=== PATIENT | male | born 1965 | race Caucasian/White ===

== ENCOUNTER 2016-03-08 13:13 | Emergency (ER) | payer BC ==
--- NOTE | 2016-03-08 13:35 | ER Document Report ---
ED Medical Screen (RME) - General Stated Complaint: CHEST PAIN Notes: 50 yo male c/o substernal, epigastric pain x 3 hours. pt took 650mg ASA at home , went to [facility] and was sent to ED. presently pt 04/16. + DM, nonsmoker. pain is nonradiating, nonreproducable. TRAVEL OUTSIDE OF THE [place] IN LAST 30 DAYS: No - Related Data Allergies/Adverse Reactions: egg [Egg] Allergy (Verified 10/07/14 16:19) Fruit Extracts [From Fruit & Vegetable Daily] Allergy (Verified 10/07/14 16:19) Lutein Extract [From Fruit & Vegetable Daily] Allergy (Verified 10/07/14 16:19) lycopene [From Fruit & Vegetable Daily] Allergy (Verified 10/07/14 16:19) Past Medical History - Past Medical History Cardiac Medical History: Reports: Hx Hypercholesterolemia Pulmonary Medical History: Reports: Hx Asthma GI Medical History: Reports: Hx Gastroesophageal Reflux Disease - Immunizations Hx Diphtheria, Pertussis, Tetanus Vaccination: Yes
[2016-03-08 14:05] LABS: ABSOLUTE BASOPHILS # (AUTO) 0.1 10^3/uL (0.0-0.2); ABSOLUTE EOSINOPHILS # (AUTO) 0.5 10^3/uL (0.0-0.6); ABSOLUTE LYMPHOCYTES (AUTO) 1.1 10^3/uL (0.5-4.7); ABSOLUTE MONOCYTES (AUTO) 0.8 10^3/uL (0.1-1.4); BASOPHILS % (AUTO) 0.6 % (0-2); EOSINOPHILS % (AUTO) 3.4 % (0-6); HEMATOCRIT 45.5 % (37.9-51.0); HEMOGLOBIN 14.9 g/dL (13.5-17.0); HGB HCT DIFFERENCE -0.8; LYMPHOCYTES % (AUTO) 8.4 % (13-45); MEAN CORPUSCULAR HEMOGLOBIN 29.3 pg (27.0-33.4); MEAN CORPUSCULAR HGB CONC 32.8 g/dL (32.0-36.0); MEAN CORPUSCULAR VOLUME 89 fl (80-97); MONOCYTES % (AUTO) 5.7 % (3-13); RED BLOOD COUNT 5.09 10^6/uL (4.35-5.55); RED CELL DISTRIBUTION WIDTH 13.1 % (11.5-14.0); SEGMENTED NEUTROPHILS % (AUTO) 81.9 % (42-78); WHITE BLOOD COUNT 13.4 10^3/uL (4.0-10.5)
[2016-03-08 14:08] LABS: APPEARANCE,URINE CLEAR; BILIRUBIN,URINE NEGATIVE (NEGATIVE); GLUCOSE, URINE 150 mg/dL (NEGATIVE); KETONES,URINE NEGATIVE (NEGATIVE); LEUKOCYTE ESTERASE,URINE NEGATIVE (NEGATIVE); NITRITE,URINE NEGATIVE (NEGATIVE); PROTEIN,URINE NEGATIVE (NEGATIVE); URINE SPECIFIC GRAVITY 1.017; UROBILINOGEN,URINE NEGATIVE mg/dL (<2.0)
[2016-03-08 14:17] LABS: ALANINE AMINOTRANSFERASE 35 U/L (21-72); ALBUMIN 4.6 g/dL (3.5-5.0); ALKALINE PHOSPHATASE 101 U/L (38-126); ANION GAP 13 (5-19); ASPARTATE AMINO TRANSFERASE 19 U/L (17-59); BLOOD UREA NITROGEN 15 mg/dL (7-20); CALCIUM 9.6 mg/dL (8.4-10.2); CARBON DIOXIDE 29 mmol/L (22-30); CHLORIDE 100 mmol/L (98-107); CREATINE KINASE 53 U/L (55-170); CREATININE RESULT 0.89 mg/dL (0.52-1.25); GLUCOSE 152 mg/dL (75-110); LIPASE 34.9 U/L (23-300); POTASSIUM 4.2 mmol/L (3.6-5.0); SODIUM 141.9 mmol/L (137-145); TOTAL PROTEIN 7.6 g/dL (6.3-8.2)
[2016-03-08 14:31] LABS: TROPONIN I < 0.012 ng/mL
--- NOTE | 2016-03-08 14:53 | EKG REPORT ---
SEVERITY:- ABNORMAL ECG - SINUS RHYTHM LAD, CONSIDER LEFT ANTERIOR FASCICULAR BLOCK : Confirmed by: Viji Lyn MD 08-Mar-2016 14:53:20
--- NOTE | 2016-03-08 15:55 | ER Document Report ---
ED Cardiac - General Chief Complaint: Chest Pain Stated Complaint: CHEST PAIN Information source: Patient Notes: Patient is a 50-year-old male who presents today with the onset around 11 AM of some substernal and epigastric chest "discomfort". He states nausea with vomiting times one. He denies any calf pain, leg swelling, shortness of breath , recent trips or travel. He denies any radiation of the pain, aggravating relieving factors. Patient states she does have a history of reflux and takes Prilosec for this. Patient is aware that he had an EKG in 2004 that was "irregular". TRAVEL OUTSIDE OF THE [place] IN LAST 30 DAYS: No - HPI Patient complains to provider of: Other - See above Was the onset of pain: Gradual Is the pain a: New problem Chest pain location: Other - See above Quality of pain: Other - See above Chest pain radiation location: None Severity now: None Severity at worst: Moderate Pain level currently: Denies Cardiac risk factors: Diabetes Positive cardiac history: No Associated symptoms: Other - See above Exacerbated by: Denies Relieved by: Nothing Similar symptoms previously: Yes Recently seen / treated by doctor: No - Related Data Allergies/Adverse Reactions: egg [Egg] Allergy (Verified 03/08/16 13:34) Fruit Extracts [From Fruit & Vegetable Daily] Allergy (Verified 03/08/16 13:34) Lutein Extract [From Fruit & Vegetable Daily] Allergy (Verified 03/08/16 13:34) lycopene [From Fruit & Vegetable Daily] Allergy (Verified 03/08/16 13:34) Past Medical History - General Information source: Patient - Social History Smoking Status: Never Smoker Chew tobacco use (# tins/day): No Frequency of alcohol use: None Drug Abuse: None Family History: Reviewed & Not Pertinent Patient has suicidal ideation: No Patient has homicidal ideation: No - Past Medical History Cardiac Medical History: Reports: Hx Hypercholesterolemia Pulmonary Medical History: Reports: Hx Asthma Renal/ Medical History: Denies: Hx Peritoneal Dialysis GI Medical History: Reports: Hx Gastroesophageal Reflux Disease - Immunizations Hx Diphtheria, Pertussis, Tetanus Vaccination: Yes Review of Systems - Review of Systems Constitutional: denies: Fever EENT: denies: Eye discharge, Nose discharge Respiratory: denies: Short of breath Gastrointestinal: Abdominal pain, Vomiting. denies: Abdomen distended, Diarrhea Genitourinary: denies: Dysuria Musculoskeletal: denies: Leg swelling Skin: Other - no hives. denies: Rash Neurological/Psychological: Other - no slurred speech -: Yes All other systems reviewed and negative Physical Exam - Vital signs Vitals: Temp Pulse Resp BP Pulse Ox 97.3 F 81 18 124/90 H 96 03/08/16 13:33 03/08/16 13:33 03/08/16 13:33 03/08/16 13:33 03/08/16 13:33 Notes: Reviewed vital signs and nursing note as charted by RN. CONSTITUTIONAL: Alert and oriented and responds appropriately to questions. Well -appearing; well-nourished HEAD: Normocephalic; atraumatic EYES: Sclerae non-icteric ENT: Normal nose; no rhinorrhea; moist mucous membranes; pharynx without lesions noted NECK: Supple without meningismus; non-tender CARD: Regular rate and rhythm; no murmurs, no clicks, no rubs, no gallops; symmetric distal pulses RESP: Normal chest excursion without splinting or tachypnea; breath sounds clear and equal bilaterally; no wheezes, no rhonchi, no rales ABD/GI: Normal bowel sounds; non-distended; soft, mild tenderness to palpation of the epigastric region. No right upper quadrant tenderness to deep palpation. Negative Apodaca sign; No rebound, no guarding; no palpable organomegaly or masses BACK: The back appears normal and is non-tender to palpation, there is no CVA tenderness EXT: Normal ROM in all joints; non-tender to palpation; no cyanosis, no effusions, no edema SKIN: Normal color for age and race; warm; dry; good turgor; capillary refill < 2 seconds; no acute lesions noted NEURO: Moves all extremities equally; Motor and sensory function intact PSYCH: The patient's mood and manner are appropriate. Grooming and personal hygiene are appropriate. Course - Re-evaluation Re-evalutation: 03/08/16 15:53 EKG shows a heart of 61, normal sinus rhythm, minimal left anterior fascicular block, right bundle-branch block with inverted T waves in leads V1 through V4. Old EKG looks extremely similar except for an upright T-wave in V4. Given the history and physical examination I been extremely low pretest probability for PE or aortic dissection. 1) Observation status Date/Time initiated: 354pm 03/08/16 ED Observation Status - The reason for the observation is to continue the patient's evaluation and treatment to determine if the patient's clinical course requires a full hospital admission or they can be safely discharged home. My plan is: To place the patient on a monitor and have a repeat cardiac enzyme obtain an 3 hours. 2) Progress Note 1: Patient is currently chest pain-free at this time. Aspirin has been given. First troponin is negative. Chest x-ray shows normal heart, normal mediastinum, no fractures, normal lung fitzgerald, no pneumothorax. 3) Progress Note 2: 03/08/16 17:55 patient is still chest pain-free at this time. Second set of cardiac enzymes is unremarkable. Patient still denies any chest pain. No change in abdominal exam. 4) ED Observation Discharge Summary: a. Clinical course in ED: Patient had 2 sets of cardiac enzymes by 3 hours. Repeat EKG as recorded. b. Final diagnosis/medical decision making: Given the history and physical examination, with 2 sets of cardiac enzymes by 3 hours, with a heart score of 3 or less, I do not believe that the patient requires admission at this time. I have called and spoken to Dr. Hansen who states he can follow up with the patient with Cardiology and GI follow up as needed. He states he can see the patient tomorrow at 2 PM. c. Disposition: Discharge 5) ED Observation Status D/C Time: 03/08/14 - 18:10PM - Vital Signs Vital signs: Temp Pulse Resp BP Pulse Ox 97.3 F 81 18 124/90 H 96 03/08/16 13:33 03/08/16 13:33 03/08/16 13:33 03/08/16 13:33 03/08/16 13:33 - Laboratory Result Diagrams: 03/08/16 13:40 03/08/16 13:40 Laboratory results interpreted by me: 03/08/16 03/08/16 03/08/16 13:40 13:40 13:45 WBC 13.4 H Seg Neutrophils % 81.9 H Lymphocytes % 8.4 L Absolute Neutrophils 11.0 H Glucose 152 H Creatine Kinase 53 L Urine Glucose (UA) 150 H Discharge - Discharge Clinical Impression: Epigastric pain, Right bundle branch block (RBBB) Condition: Good Disposition: HOME, SELF-CARE Additional Instructions: Come back immediately with any return of pain, change in location or quality of pain, fevers, vomiting, shortness of breath, or any other acute problems. Please make sure that you follow-up tomorrow at [address] Hansen as we have scheduled for you.
[2016-03-08 18:26] VITALS: BP 130/88
--- NOTE | 2016-03-10 12:42 | EKG REPORT ---
SEVERITY:- ABNORMAL ECG - SINUS RHYTHM INCOMPLETE RIGHT BUNDLE BRANCH BLOCK PROBABLE INFERIOR INFARCT, OLD CONSIDER ANTERIOR INFARCT : Confirmed by: Viji Lyn MD 10-Mar-2016 12:42:06
== END 2016-03-08 18:26 | disposition home or self-care (01) ==
LOC: ER 13:13
DX: I45.2 Bifascicular block (principal); K21.9 Gastro-esophageal reflux disease without esophagitis; R10.13 Epigastric pain; R11.2 Nausea with vomiting, unspecified; J45.909 Unspecified asthma, uncomplicated; Z79.899 Other long term (current) drug therapy; Z91.012 Allergy to eggs; Z91.018 Allergy to other foods
CPT/HCPCS: 36415; 71020; 80053; 81001; 82550; 82553; 83690; 84484; 85025; 93005; 93010; 99285

== ENCOUNTER 2016-08-04 10:49 | Emergency (ER) | payer BC, OTHER ==
[2016-08-04] MEDS ORDERED: ONDANSETRON 4 MG TAB.RAPDIS PO ONE (12:21)
--- NOTE | 2016-08-04 12:21 | ER Document Report ---
ED General - General Mode of Arrival: Ambulatory Information source: Patient TRAVEL OUTSIDE OF THE [place] IN LAST 30 DAYS: No - General Chief Complaint: Nausea/Vomiting Stated Complaint: NAUSEA Time Seen by Provider: 08/04/16 11:32 Notes: Patient is a 51-year-old male presenting to the emergency department for nausea , vomiting, sore throat and cough. Patient's symptoms were onset Sunday. Patient saw his ENT doctor yesterday states his throat was fine but it appeared that he cannot catch his breath while he was talking. Patient has a dry cough which he believes is why he has a sore throat as well. Patient states he is possibly dehydrated. Patient states he has been vomiting some with his cough. Patient denies any diarrhea. Patient also states that urine has been orange in color. Patient has a history of asthma and takes Ventolin only when he needs it. Patient has a history of strep throat. (STEVEN LATHAM) - Related Data Allergies/Adverse Reactions: egg [Egg] Allergy (Verified 08/04/16 10:54) Fruit Extracts [From Fruit & Vegetable Daily] Allergy (Verified 08/04/16 10:54) Lutein Extract [From Fruit & Vegetable Daily] Allergy (Verified 08/04/16 10:54) lycopene [From Fruit & Vegetable Daily] Allergy (Verified 08/04/16 10:54) Past Medical History - General Information source: Patient - Social History Smoking Status: Never Smoker Chew tobacco use (# tins/day): No Frequency of alcohol use: None Drug Abuse: None Family History: None Patient has suicidal ideation: No Patient has homicidal ideation: No - Past Medical History Cardiac Medical History: Reports: Hx Hypercholesterolemia Pulmonary Medical History: Reports: Hx Asthma Endocrine Medical History: Reports: Hx Diabetes Mellitus Type 2Comment Only: Hx Diabetes Mellitus Type 1 - ? GI Medical History: Reports: Hx Gastroesophageal Reflux Disease Surgical Hx: Negative - Immunizations Hx Diphtheria, Pertussis, Tetanus Vaccination: Yes Review of Systems - Review of Systems Constitutional: No symptoms reported EENT: See HPI Cardiovascular: See HPI Respiratory: No symptoms reported Gastrointestinal: See HPI Genitourinary: No symptoms reported Male Genitourinary: No symptoms reported Musculoskeletal: No symptoms reported Skin: No symptoms reported Hematologic/Lymphatic: No symptoms reported Neurological/Psychological: See HPI, Headaches -: Yes All other systems reviewed and negative Physical Exam - Vital signs Vitals: Temp Pulse Resp BP Pulse Ox 98.4 F 90 16 151/94 H 95 08/04/16 10:53 08/04/16 10:53 08/04/16 10:53 08/04/16 10:53 08/04/16 10:53 - Notes Notes: GENERAL: Alert, interacts well. No acute distress. HEAD: Normocephalic, atraumatic. EYES: Pupils equal, round, and reactive to light. Extraocular movements intact. ENT: Oral mucosa moist, tongue midline. NECK: Full range of motion. Supple. Trachea midline. LUNGS: Clear to auscultation bilaterally, no wheezes, rales, or rhonchi. No respiratory distress. HEART: Regular rate and rhythm. No murmurs, gallops, or rubs. ABDOMEN: Soft, non-tender. Non-distended. Bowel sounds present in all 4 quadrants. EXTREMITIES: Moves all 4 extremities spontaneously. No edema. NEUROLOGICAL: Alert and oriented x3. Normal speech. PSYCH: Normal affect, normal mood. SKIN: Warm, dry, normal turgor. No rashes or lesions noted. (STEVEN LATHAM) Course - Re-evaluation Re-evalutation: 08/04/16 13:20 Patient presents emergency department with a chief complaint a one-week history of cough and sore throat from coughing. Said that he saw his ENT doctor yesterday and they did not find anything apparent. Says he has posttussive emesis no fevers or chills he does have a history of asthma but has not been wheezing. He has not been hospitalized or intubated for his asthma. He is well -appearing nontoxic in no acute distress no tachycardia and pulse ox 95% on room air with no conversational dyspnea or retractions his lungs are clear no wheezes rales or rhonchi abdomen soft with no peripheral edema. Chest x-ray is negative for acute pathology suspected bronchitis went ahead and start him on prednisone he needs a refill of his inhaler and gave him Zofran for the posttussive emesis no acute concerns for intra-abdominal pathology discharge follow-up primary care physician in 3-4 days and discussed reasons for ED return sooner (CHERRI HERNANDEZ) - Vital Signs Vital signs: Temp Pulse Resp BP Pulse Ox 98.2 F 74 20 134/94 H 100 08/04/16 13:39 08/04/16 13:39 08/04/16 13:39 08/04/16 13:39 08/04/16 13:39 Discharge - Discharge Clinical Impression: acute bronchitis, postussive emesis Condition: Stable Disposition: HOME, SELF-CARE Additional Instructions: Bronchitis You have acute bronchitis. This disease is an infection or inflammation of the air passageways in your lungs. Symptoms usually include cough, low grade fever, shortness of breath, and wheezing. The cough usually persists for a couple of weeks. Most cases of bronchitis get better without antibiotics. We prescribe antibiotics when we believe bacteria are damaging your airways, or if there's high risk the bronchitis will worsen into pneumonia. Increase your fluid intake. A cool mist humidifier may make your lungs more comfortable. An expectorant (cough medicine that loosens phlegm) can help. If you smoke, STOP!!! Recovery from bronchitis can be somewhat slow, but you should see improvement within a day or two. Repeated episodes of bronchitis may result in lung damage -- for example, chronic bronchitis, recurrent pneumonias, or emphysema. Call the doctor if you develop increasing fever, shortness of breath, chest pain, bloody sputum, or otherwise worsen. If you have not improved at all after several days, contact the physician. Follow-up with your primary care physician in 3-4 days return for increasing worsening or new symptoms Prescriptions: Albuterol Sulfate [Proair HFA Inhalation Aerosol 8.5 gm MDI] 2 puff IH Q4H PRN # 1 mdi PRN Reason: Ondansetron [Zofran Odt 4 mg Tablet] 1 - 2 tab PO Q4H PRN #15 tab.rapdis PRN Reason: For Nausea/Vomiting Prednisone [Deltasone 20 mg Tablet] 3 tab PO DAILY 5 Days Referrals: ANA LUISA MONTIEL MD [Primary Care Provider] - Follow up as needed Scribe Attestation: 08/04/16 13:20 I personally performed the services described in the documentation reviewed the documentation recorded by my scribe in my presence and it accurately and completely records my words and actions (CHERRI HERNANDEZ) Scribe Documentation - Scribe Written by Scribe:: My signature 08/04/2016 180 acting as scribe for :: MARY
--- NOTE | 2016-08-04 12:41 | RADIOLOGY REPORT (SQ) ---
EXAM DESCRIPTION: CHEST PA/LAT COMPLETED DATE/TIME: 08/04/2016 12:31 pm REASON FOR STUDY: cough COMPARISON: February 2016 EXAM PARAMETERS: NUMBER OF VIEWS: two views TECHNIQUE: Digital Frontal and Lateral radiographic views of the chest acquired. RADIATION DOSE: NA LIMITATIONS: none FINDINGS: LUNGS AND PLEURA: No opacities, masses or pneumothorax. No pleural effusion. MEDIASTINUM AND HILAR STRUCTURES: No masses or contour abnormalities. HEART AND VASCULAR STRUCTURES: Heart normal size. No evidence for failure. BONES: No acute findings. HARDWARE: None in the chest. OTHER: No other significant finding. IMPRESSION: NO SIGNIFICANT RADIOGRAPHIC FINDING IN THE CHEST. TECHNICAL DOCUMENTATION: JOB ID: [id number] [employer]- All Rights Reserved
[2016-08-04 13:40] VITALS: BP 134/94
== END 2016-08-04 13:40 | disposition home or self-care (01) ==
LOC: ER 10:49
DX: J20.9 Acute bronchitis, unspecified (principal); R11.2 Nausea with vomiting, unspecified; J02.9 Acute pharyngitis, unspecified; J45.909 Unspecified asthma, uncomplicated; E78.00 Pure hypercholesterolemia, unspecified; E11.9 Type 2 diabetes mellitus without complications; K21.9 Gastro-esophageal reflux disease without esophagitis
CPT/HCPCS: 99283; 71020; S0119

== ENCOUNTER 2016-10-08 17:36 | Emergency (ER) | payer BC | END 2016-10-08 18:40 | disposition home or self-care (01) | LOC: ER 17:36 | DX: H60.91 Unspecified otitis externa, right ear (principal) | CPT/HCPCS: 99282 ==

== ENCOUNTER 2017-04-30 16:13 | Emergency (ER) | payer BC ==
[2017-04-30] MEDS ORDERED: ASPIRIN 325 MG TABLET PO ONE (17:35)
--- NOTE | 2017-04-30 17:37 | ER Document Report ---
ED Medical Screen (RME) - General Chief Complaint: Chest Pain Stated Complaint: CHEST PAIN Time Seen by Provider: 04/30/17 17:35 Mode of Arrival: Ambulatory Information source: Patient Notes: Patient states she has been diagnosed with angina in the past but does not take nitroglycerin or an aspirin a day. He states he does not have any history of heart attacks or stents. He states the last 2 weeks he has had chest pain every day that feels like a "bruise". He states at times throughout the day will get worse. Occasionally is short of breath. No nausea vomiting or diarrhea. He has had a mild cough that is been dry. He was seen in urgent care today in which an abnormal EKG was appreciated. He was then referred here to the emergency department. He states he currently has chest pain but is no different than the same pain he has had consistently for the last 2 weeks. TRAVEL OUTSIDE OF THE [place] IN LAST 30 DAYS: No - Related Data Allergies/Adverse Reactions: egg [Egg] Allergy (Verified 04/30/17 16:15) Fruit Extracts [From Fruit & Vegetable Daily] Allergy (Verified 04/30/17 16:15) Lutein Extract [From Fruit & Vegetable Daily] Allergy (Verified 04/30/17 16:15) lycopene [From Fruit & Vegetable Daily] Allergy (Verified 04/30/17 16:15) Past Medical History - Social History Chew tobacco use (# tins/day): No Frequency of alcohol use: None Drug Abuse: None - Past Medical History Cardiac Medical History: Reports: Hx Hypercholesterolemia Pulmonary Medical History: Reports: Hx Asthma Endocrine Medical History: Reports: Hx Diabetes Mellitus Type 2Comment Only: Hx Diabetes Mellitus Type 1 - ? Renal/ Medical History: Denies: Hx Peritoneal Dialysis GI Medical History: Reports: Hx Gastroesophageal Reflux Disease - Immunizations Hx Diphtheria, Pertussis, Tetanus Vaccination: Yes Physical Exam - Vital signs Vitals: Temp Pulse Resp BP Pulse Ox 98.6 F 89 16 151/79 H 96 04/30/17 16:19 04/30/17 16:19 04/30/17 16:19 04/30/17 16:19 04/30/17 16:19 Course - Vital Signs Vital signs: Temp Pulse Resp BP Pulse Ox 98.6 F 89 16 151/79 H 96 04/30/17 16:19 04/30/17 16:19 04/30/17 16:19 04/30/17 16:19 04/30/17 16:19 Doctor's Discharge - Discharge Referrals: ANA LUISA MONTIEL MD [Primary Care Provider] - Follow up as needed
[2017-04-30 17:58] LABS: ABSOLUTE BASOPHILS # (AUTO) 0.1 10^3/uL (0.0-0.2); ABSOLUTE EOSINOPHILS # (AUTO) 0.5 10^3/uL (0.0-0.6); ABSOLUTE LYMPHOCYTES (AUTO) 2.4 10^3/uL (0.5-4.7); ABSOLUTE MONOCYTES (AUTO) 0.6 10^3/uL (0.1-1.4); ABSOLUTE NEUT (AUTO) 5.2 10^3/uL (1.7-8.2); BASOPHILS % (AUTO) 1.1 % (0-2); EOSINOPHILS % (AUTO) 5.8 % (0-6); HEMATOCRIT 47.6 % (37.9-51.0); HEMOGLOBIN 16.3 g/dL (13.5-17.0); LYMPHOCYTES % (AUTO) 26.8 % (13-45); MEAN CORPUSCULAR HEMOGLOBIN 29.4 pg (27.0-33.4); MEAN CORPUSCULAR HGB CONC 34.2 g/dL (32.0-36.0); MEAN CORPUSCULAR VOLUME 86 fl (80-97); MONOCYTES % (AUTO) 7.3 % (3-13); PLATELET COUNT 287 10^3/uL (150-450); RED BLOOD COUNT 5.54 10^6/uL (4.35-5.55); RED CELL DISTRIBUTION WIDTH 13.5 % (11.5-14.0); TOTAL CELLS COUNTED % (AUTO) 100 %; WHITE BLOOD COUNT 8.8 10^3/uL (4.0-10.5)
[2017-04-30 18:14] LABS: ALANINE AMINOTRANSFERASE 40 U/L (21-72); ALBUMIN 4.6 g/dL (3.5-5.0); ALKALINE PHOSPHATASE 96 U/L (38-126); ANION GAP 12 (5-19); ASPARTATE AMINO TRANSFERASE 24 U/L (17-59); BILIRUBIN,DIRECT 0.2 mg/dL (0.0-0.4); BILIRUBIN,TOTAL 0.9 mg/dL (0.2-1.3); BLOOD UREA NITROGEN 12 mg/dL (7-20); CALCIUM 9.8 mg/dL (8.4-10.2); CARBON DIOXIDE 27 mmol/L (22-30); CHLORIDE 101 mmol/L (98-107); GLUCOSE 149 mg/dL (75-110); POTASSIUM 4.1 mmol/L (3.6-5.0); SODIUM 140.2 mmol/L (137-145); TOTAL PROTEIN 7.3 g/dL (6.3-8.2)
--- NOTE | 2017-04-30 18:20 | RADIOLOGY REPORT (SQ) ---
EXAM DESCRIPTION: CHEST PA/LAT COMPLETED DATE/TIME: 04/30/2017 6:11 pm REASON FOR STUDY: cp COMPARISON: 10/04/2016 EXAM PARAMETERS: NUMBER OF VIEWS: two views TECHNIQUE: Digital Frontal and Lateral radiographic views of the chest acquired. RADIATION DOSE: NA LIMITATIONS: none FINDINGS: LUNGS AND PLEURA: No opacities, masses or pneumothorax. No pleural effusion. MEDIASTINUM AND HILAR STRUCTURES: No masses or contour abnormalities. HEART AND VASCULAR STRUCTURES: Heart normal size. No evidence for failure. BONES: No acute findings. HARDWARE: None in the chest. OTHER: No other significant finding. IMPRESSION: NO SIGNIFICANT RADIOGRAPHIC FINDING IN THE CHEST. TECHNICAL DOCUMENTATION: JOB ID: [id number] [employer]- All Rights Reserved Reading location - IP/workstation name: [email or web address]
--- NOTE | 2017-04-30 19:16 | ER Document Report ---
ED General - General Chief Complaint: Chest Pain Stated Complaint: CHEST PAIN Time Seen by Provider: 04/30/17 17:35 Mode of Arrival: Ambulatory Notes: Patient is a 51-year-old male without past medical history who presents with 3 weeks of right lower rib pain. He describes it as a dull, constant aching pain worsened by movement and coughing. He states this feels somewhat similar to when he injured his left-sided ribs. He is uncertain of what triggered his pain notes that it has been overall unchanged since onset 3 weeks ago. He has not tried anything to improve the pain. He denies any change in the pain with eating or drinking. He denies any shortness of breath, hemoptysis, or left- sided chest pain. No radiation of the pain. No associated diaphoresis or vomiting. He has not seen his primary care doctor regarding today's concerns. He was seen in urgent care and subsequently referred to the emergency department due to concerns of T-wave inversions in his anterior lateral leads. He has no known cardiac history. No history of DVT or pulmonary embolus. No history of abdominal surgeries. TRAVEL OUTSIDE OF THE [place] IN LAST 30 DAYS: No - Related Data Allergies/Adverse Reactions: egg [Egg] Allergy (Verified 04/30/17 16:15) Fruit Extracts [From Fruit & Vegetable Daily] Allergy (Verified 04/30/17 16:15) Lutein Extract [From Fruit & Vegetable Daily] Allergy (Verified 04/30/17 16:15) lycopene [From Fruit & Vegetable Daily] Allergy (Verified 04/30/17 16:15) Past Medical History - General Information source: Patient - Social History Smoking Status: Never Smoker Chew tobacco use (# tins/day): No Frequency of alcohol use: None Drug Abuse: None Lives with: Family Family History: Reviewed & Not Pertinent Patient has suicidal ideation: No Patient has homicidal ideation: No - Past Medical History Cardiac Medical History: Reports: Hx Hypercholesterolemia Pulmonary Medical History: Reports: Hx Asthma Endocrine Medical History: Reports: Hx Diabetes Mellitus Type 2Comment Only: Hx Diabetes Mellitus Type 1 - ? Renal/ Medical History: Denies: Hx Peritoneal Dialysis GI Medical History: Reports: Hx Gastroesophageal Reflux Disease - Immunizations Hx Diphtheria, Pertussis, Tetanus Vaccination: Yes Review of Systems - Review of Systems Notes: Constitutional: Negative for fever. HENT: Negative for sore throat. Eyes: Negative for visual changes. Cardiovascular: Negative for chest pain. Respiratory: Negative for shortness of breath. Gastrointestinal: Negative for abdominal pain, vomiting or diarrhea. Genitourinary: Negative for dysuria. Musculoskeletal: Positive for lower rib pain on the right Skin: Negative for rash. Neurological: Negative for headaches, weakness or numbness. 10 point ROS negative except as marked above and in HPI. Physical Exam - Vital signs Vitals: Temp Pulse Resp BP Pulse Ox 98.6 F 89 16 151/79 H 96 04/30/17 16:19 04/30/17 16:19 04/30/17 16:19 04/30/17 16:19 04/30/17 16:19 Interpretation: Hypertensive Notes: PHYSICAL EXAMINATION: GENERAL: Well-appearing, well-nourished and in no acute distress. HEAD: Atraumatic, normocephalic. EYES: Pupils equal round and reactive to light, extraocular movements intact, sclera anicteric, conjunctiva are normal. ENT: nares patent, oropharynx clear without exudates. Moist mucous membranes. NECK: Normal range of motion, supple without lymphadenopathy LUNGS: Breath sounds clear to auscultation bilaterally and equal. No wheezes rales or rhonchi. HEART: Regular rate and rhythm without murmurs Chest wall: Pain on palpation of the right lower intercostal spaces ABDOMEN: Soft, nontender, normoactive bowel sounds. No guarding, no rebound. No masses appreciated. EXTREMITIES: Normal range of motion, no pitting or edema. No cyanosis. NEUROLOGICAL: No focal neurological deficits. Moves all extremities spontaneously and on command. PSYCH: Normal mood, normal affect. SKIN: Warm, Dry, normal turgor, no rashes or lesions noted. Course - Re-evaluation Re-evalutation: 04/30/17 19:13 Presentation of chest pain in an otherwise well appearing patient. Low clinical suspicion for ACS given clinical history, exam, EKG without ST elevations or depressions, and negative initial troponin. HEART score less than or equal to 3. PE also seems unlikely given clinical history, absence of tachycardia or dyspnea. Wells score is 0. CXR without evidence of pneumothorax or pneumonia. No widened mediastinum. Aortic dissection also seems unlikely given history, symmetric pulses, CXR, and vitals. Patient has had 3 weeks of symptoms, they are localized to the right lower chest wall. He has no focal tenderness the right upper quadrant and denies any symptoms that would suggest a biliary pathology. LFTs and bilirubin are within normal limits. He has not had any vomiting. I do not clinically suspect any acute life threatening pathology at this time point based on exam, labs, vitals and history. His EKG does show T- wave inversions in the lateral leads although these are unchanged from February 2016. At this time will discharge with return precautions and follow-up recommendations. Verbal discharge instructions given a the bedside and opportunity for questions given. Medication warnings reviewed. Patient is in agreement with this plan and has verbalized understanding of return precautions and the need for primary care follow-up in the next 24-72 hours. - Vital Signs Vital signs: Temp Pulse Resp BP Pulse Ox 98.6 F 89 14 128/91 H 95 04/30/17 16:19 04/30/17 16:19 04/30/17 20:12 04/30/17 20:12 04/30/17 20:12 - Laboratory Result Diagrams: 04/30/17 17:43 04/30/17 17:43 Laboratory results interpreted by me: 04/30/17 17:43 Glucose 149 H - Diagnostic Test Radiology reviewed: Image reviewed, Reports reviewed Radiology results interpreted by me: 04/30/17 19:14 Chest x-ray: No acute infiltrate or pneumothorax - EKG Interpretation by Me Additional EKG results interpreted by me: 04/30/17 19:15 Sinus rhythm. Rate 80. No ST elevations or depressions. T-wave inversions in V1 through 4 unchanged from a prior EKG from February 2016. Discharge - Discharge Clinical Impression: Rib pain, Chest wall pain Condition: Good Disposition: HOME, SELF-CARE Additional Instructions: Your chest wall pain is due to inflammation of the muscles between your ribs. Your x-ray, labs, and EKG do not at this time suggest a life-threatening cause of your pain such as a heart attack, blood clot in your lungs, or lung infection. This pain can last for up to 6 weeks. It is very important that you continue to take purposeful deep breaths. For your pain: Continue to take ibuprofen 600 mg every 6 hours or Tylenol 1000 mg every 6 hours. Apply local lidocaine to the area per bottle instructions. There is a product sold over-the -counter called "Aspercreme with lidocaine" that you can use for this purpose. Please follow-up with her primary care doctor in the next 2-3 days. Return to the emergency department immediately if you develop worsening shortness of breath, increased pain, begin coughing blood, pass out, or have any other symptoms that are worrisome to you. Referrals: ANA LUISA MONTIEL MD [Primary Care Provider] - Follow up as needed
[2017-04-30] MEDS ORDERED: LIDOCAINE 5% (700 MG) TRANSDERMAL ADH..PATCH TP ONE (20:05)
[2017-04-30 20:16] VITALS: BP 128/91
--- NOTE | 2017-04-30 23:32 | EKG REPORT ---
SEVERITY:- ABNORMAL ECG - SINUS RHYTHM LAD, CONSIDER LEFT ANTERIOR FASCICULAR BLOCK NON SPECIFIC T INVERSION ANTERIOR CHEST LEADS : Confirmed by: Iván Mo 30-Apr-2017 23:31:15
== END 2017-04-30 20:16 | disposition home or self-care (01) ==
LOC: ER 16:13
DX: R07.81 Pleurodynia (principal); R07.89 Other chest pain; R94.31 Abnormal electrocardiogram [ECG] [EKG]; J45.909 Unspecified asthma, uncomplicated; E11.9 Type 2 diabetes mellitus without complications
CPT/HCPCS: 36415; 71046; 80053; 84484; 85025; 93005; 93010; 99284

== ENCOUNTER 2017-08-21 06:27 | Observation (INO) | payer BC ==
--- NOTE | 2017-08-21 06:34 | ER Document Report ---
ED General - General Stated Complaint: STROKE LIKE SYMPTOMS Time Seen by Provider: 08/21/17 06:32 Mode of Arrival: Wheelchair Information source: Patient Notes: 52-year-old male presents with sudden episode of right blurry vision sensation that he is drooling on the left left arm paresthesia is started at 6 AM. Patient denies previous similar episodes TRAVEL OUTSIDE OF THE [place] IN LAST 30 DAYS: No - HPI Onset: Just prior to arrival Onset/Duration: Sudden Quality of pain: No pain Severity: Mild Pain Level: Denies Associated symptoms: Nausea, Weakness Exacerbated by: Denies Relieved by: Denies Similar symptoms previously: No Recently seen / treated by doctor: No - Related Data Allergies/Adverse Reactions: egg [Egg] Allergy (Verified 04/30/17 16:15) Fruit Extracts [From Fruit & Vegetable Daily] Allergy (Verified 04/30/17 16:15) Lutein Extract [From Fruit & Vegetable Daily] Allergy (Verified 04/30/17 16:15) lycopene [From Fruit & Vegetable Daily] Allergy (Verified 04/30/17 16:15) Past Medical History - Social History Smoking Status: Never Smoker Cigarette use (# per day): No Chew tobacco use (# tins/day): No Smoking Education Provided: No Family History: Reviewed & Not Pertinent - Past Medical History Cardiac Medical History: Reports: Hx Hypercholesterolemia Pulmonary Medical History: Reports: Hx Asthma Endocrine Medical History: Reports: Hx Diabetes Mellitus Type 2Comment Only: Hx Diabetes Mellitus Type 1 - ? Renal/ Medical History: Denies: Hx Peritoneal Dialysis GI Medical History: Reports: Hx Gastroesophageal Reflux Disease - Immunizations Hx Diphtheria, Pertussis, Tetanus Vaccination: Yes Review of Systems - Review of Systems Notes: REVIEW OF SYSTEMS: CONSTITUTIONAL : Denies fever, chills, or sweats. Denies recent illness. EENT: Denies eye, ear, throat, or mouth pain or symptoms. Denies nasal or sinus congestion or discharge. Denies throat, tongue, or mouth swelling or difficulty swallowing. CARDIOVASCULAR: Denies chest pain. Denies palpitations or racing or irregular heart beat. Denies ankle edema. RESPIRATORY: Denies cough, cold, or chest congestion. Denies shortness of breath, difficulty breathing, or wheezing. GASTROINTESTINAL: Nausea GENITOURINARY: Denies difficulty urinating, painful urination, burning, frequency, blood in urine, or discharge. MUSCULOSKELETAL: Denies back or neck pain or stiffness. Denies joint pain or swelling. SKIN: Denies rash, lesions or sores. HEMATOLOGIC : Denies easy bruising or bleeding. LYMPHATIC: Denies swollen, enlarged glands. NEUROLOGICAL: Left arm paresthesia PSYCHIATRIC: Denies anxiety or stress. Denies depression, suicidal ideation, or homicidal ideation. ALL OTHER SYSTEMS REVIEWED AND NEGATIVE. Dictation was performed using [employer] voice recognition software PHYSICAL EXAMINATION: GENERAL: Well-appearing, well-nourished and in no acute distress. HEAD: Atraumatic, normocephalic. EYES: Pupils equal round and reactive to light, extraocular movements intact, sclera anicteric, conjunctiva are normal. ENT: Nares patent, oropharynx clear without exudates. Moist mucous membranes. NECK: Normal range of motion, supple without lymphadenopathy LUNGS: Breath sounds clear to auscultation bilaterally and equal. No wheezes rales or rhonchi. HEART: Regular rate and rhythm without murmurs ABDOMEN: Soft, nontender, nondistended abdomen. No guarding, no rebound. No masses appreciated. Musculoskeletal: Normal range of motion, no pitting or edema. No cyanosis. NEUROLOGICAL: Cranial nerves grossly intact. Normal speech, normal gait. Normal sensory, motor exams PSYCH: Normal mood, normal affect. SKIN: Warm, Dry, normal turgor, no rashes or lesions noted. Physical Exam - Vital signs Vitals: Pulse Ox 98 08/21/17 06:42 Course - Re-evaluation Re-evalutation: 08/21/17 06:34 Patient emergently seen in the waiting room sent straight to CT 08/21/17 06:45 Patient's NIH score is 0 08/21/17 08:40 Symptoms have resolved will observe in hospital. - Vital Signs Vital signs: Temp Pulse Resp BP Pulse Ox 98 08/21/17 06:42 - Laboratory Result Diagrams: 08/21/17 06:40 08/21/17 06:40 Laboratory results interpreted by me: 08/21/17 08/21/17 08/21/17 06:40 06:40 06:46 Eosinophils % 6.1 H Glucose 194 H POC Glucose 182 H Creatine Kinase 49 L Discharge - Discharge Clinical Impression: TIA (transient ischemic attack) Condition: Stable Disposition: ADMITTED OBSERVATION Admitting Provider: Hospitalist Unit Admitted: IMCU Referrals: ANA LUISA MONTIEL MD [ACTIVE STAFF] - Follow up as needed
--- NOTE | 2017-08-21 06:48 | RADIOLOGY REPORT (SQ) ---
EXAM DESCRIPTION: CT HEAD WITHOUT IV CONTRAST COMPLETED DATE/TME: 08/21/2017 06:30 CLINICAL HISTORY: stroke sxs COMPARISON: 04/09/2013 TECHNIQUE: Axial CT of the head obtained from the skull apex to the skull base without contrast. FINDINGS: No acute intracranial hemorrhage identified. No mass, mass effect, shift of the midline, abnormal extra-axial fluid collection or CT evidence of acute ischemic change identified. The ventricular system is unremarkable. No acute abnormalities of the supratentorial white matter, basal ganglia, cerebellum, or brainstem. The visualized paranasal sinuses and the mastoids are clear. No skull fracture identified. Visualized orbits and globes are unremarkable. DLP: 1139.21 mGy-cm IMPRESSION: 1. No acute intracranial abnormality identified. This exam was performed according to our departmental dose-optimization program, which includes automated exposure control, adjustment of the mA and/or kV according to patient size and/or use of iterative reconstruction technique.
[2017-08-21 06:54] LABS: ABSOLUTE BASOPHILS # (AUTO) 0.1 10^3/uL (0.0-0.2); ABSOLUTE EOSINOPHILS # (AUTO) 0.5 10^3/uL (0.0-0.6); ABSOLUTE LYMPHOCYTES (AUTO) 1.9 10^3/uL (0.5-4.7); ABSOLUTE MONOCYTES (AUTO) 0.6 10^3/uL (0.1-1.4); ABSOLUTE NEUT (AUTO) 4.7 10^3/uL (1.7-8.2); BASOPHILS % (AUTO) 1.1 % (0-2); EOSINOPHILS % (AUTO) 6.1 % (0-6); HEMATOCRIT 46.1 % (37.9-51.0); HEMOGLOBIN 15.9 g/dL (13.5-17.0); LYMPHOCYTES % (AUTO) 24.6 % (13-45); MEAN CORPUSCULAR HEMOGLOBIN 30.1 pg (27.0-33.4); MEAN CORPUSCULAR HGB CONC 34.5 g/dL (32.0-36.0); MEAN CORPUSCULAR VOLUME 87 fl (80-97); MONOCYTES % (AUTO) 7.7 % (3-13); PLATELET COUNT 267 10^3/uL (150-450); RED BLOOD COUNT 5.28 10^6/uL (4.35-5.55); SEGMENTED NEUTROPHILS % (AUTO) 60.5 % (42-78); TOTAL CELLS COUNTED % (AUTO) 100 %; WHITE BLOOD COUNT 7.8 10^3/uL (4.0-10.5)
[2017-08-21 06:58] LABS: INTERNATIONAL RATION (INR) 0.86; PROTHROMBIN TIME 12.2 SEC (11.4-15.4)
[2017-08-21 06:59] LABS: PARTIAL THROMBOPLASTIN TIME 30.8 SEC (23.5-35.8)
--- NOTE | 2017-08-21 07:14 | RADIOLOGY REPORT (SQ) ---
EXAM DESCRIPTION: XR CHEST 1 VIEW COMPLETED DATE/TME: 08/21/2017 06:30 CLINICAL HISTORY: stroke sxs COMPARISON: 04/30/2017 FINDINGS: Single frontal view of the chest. Leads overlie the chest. The cardiomediastinal silhouette has normal size and contour. No consolidation, pneumothorax, or pleural effusion. No displaced rib fractures identified. Upper abdominal soft tissues are unremarkable. IMPRESSION: 1. No acute pulmonary process identified.
[2017-08-21 07:19] LABS: ALANINE AMINOTRANSFERASE 35 U/L (21-72); ALBUMIN 4.1 g/dL (3.5-5.0); ALKALINE PHOSPHATASE 124 U/L (38-126); ANION GAP 12 (5-19); ASPARTATE AMINO TRANSFERASE 25 U/L (17-59); BILIRUBIN,DIRECT 0.4 mg/dL (0.0-0.4); BILIRUBIN,TOTAL 0.4 mg/dL (0.2-1.3); BLOOD UREA NITROGEN 15 mg/dL (7-20); CALCIUM 9.5 mg/dL (8.4-10.2); CARBON DIOXIDE 28 mmol/L (22-30); CHLORIDE 102 mmol/L (98-107); CREATINE KINASE 49 U/L (55-170); GLUCOSE 194 mg/dL (75-110); POTASSIUM 4.2 mmol/L (3.6-5.0); SODIUM 141.9 mmol/L (137-145); TOTAL PROTEIN 7.1 g/dL (6.3-8.2)
[2017-08-21 07:30] LABS: CREATINE KINASE MB 0.96 ng/mL (<4.55)
[2017-08-21 07:43] LABS: TROPONIN I < 0.012 ng/mL
[2017-08-21] MEDS ORDERED: ASPIRIN 325 MG TABLET PO ONE (08:40)
--- NOTE | 2017-08-21 09:59 | EKG REPORT ---
SEVERITY:- ABNORMAL ECG - SINUS RHYTHM INCOMPLETE RIGHT BUNDLE BRANCH BLOCK PROBABLE INFERIOR INFARCT, OLD : Confirmed by: Viji Lyn MD 21-Aug-2017 09:58:18
[2017-08-21] MEDS ORDERED: DOCUSATE SODIUM 100 MG CAPSULE PO PRN (10:16)
[2017-08-21] MEDS ORDERED: ACETAMINOPHEN 325 MG TABLET PO PRN (10:16)
[2017-08-21] MEDS ORDERED: TEMAZEPAM 15 MG CAPSULE PO PRN (10:16)
[2017-08-21] MEDS ORDERED: MAGNESIUM HYDROXIDE SUSP 30 ML UDCUP PO PRN (10:16)
[2017-08-21] MEDS ORDERED: ONDANSETRON HCL INJ/PF 4 MG/2 ML SDV IV PRN (10:16)
[2017-08-21] MEDS ORDERED: ATORVASTATIN CALCIUM 80 MG TABLET PO ONE (10:22)
[2017-08-21] MEDS ORDERED: ALBUTEROL SULFATE HFA (90 MCG/PUFF) 200 PUFF/8.5 GM MDI IH PRN (10:22)
[2017-08-21] MEDS: HEPARIN SOD (PORCINE) 5,000 UNIT/ML 1 ML SYRINGE SUBCUT SCH ×2 (14:33→21:24)
--- NOTE | 2017-08-21 14:42 | RADIOLOGY REPORT (SQ) ---
EXAM DESCRIPTION: MRI HEAD WITHOUT COMPLETED DATE/TIME: 08/21/2017 12:32 pm REASON FOR STUDY: lt side numbness, blurred vision; TIA/CVA rule out COMPARISON: CT brain 08/21/2017 MRI brain and MRA exam [facility] [place] 05/04/2010 TECHNIQUE: Multiplanar imaging includes non-contrasted T1, T2, FLAIR, and diffusion with ADC map seq uences. Images stored on PACS. LIMITATIONS: None. FINDINGS: ANATOMY: No anomalies. Normal vascular flow voids. Pituitary fossa normal. CSF SPACES: Normal in size and contour. No hemorrhage. CEREBRUM: Sulci and gyri normal in size and contour. Normal white matter signal on FLAIR imaging. No evidence of hemorrhage, mass, or extraaxial fluid collection. POSTERIOR FOSSA: No signal alteration. No hemorrhage. No edema, masses or mass effect. Internal patito tory canals, cerebello-pontine angles, mastoids normal. DIFFUSION IMAGING: Negative for acute or sub-acute infarction. ORBITS: No masses. Globes normal. PARANASAL SINUSES: No fluid levels. Mucosa normal. OTHER: No other significant finding. IMPRESSION: NORMAL MRI OF THE BRAIN WITHOUT INTRAVENOUS GADOLINIUM CONTRAST. EVIDENCE OF ACUTE STROKE: NO. TECHNICAL DOCUMENTATION: JOB ID: [id number] [employer]- All Rights Reserved Reading location - IP/workstation name: [email or web address]
[2017-08-21] MEDS: LANSOPRAZOLE 15 MG TAB.RAP.DR PO SCH (16:35)
--- NOTE | 2017-08-21 19:51 | PDOC H&P ---
History of Present Illness Admission Date/PCP: 08/21/17 09:14 Patient complains of: Lt side numbness, blurred vision History of Present Illness: EAMON MARQUEZ is a 52 year old male with a past medical history significant for asthma, GERD, prediabetic, hypertension not on hypertensive who presented to the emergency department today with a complaint of waking with left-sided numbness first noted to his hand that progressively worsened to include his left leg this morning. He also reports a sensation of drooling to the left side of his mouth, although, was not having difficulty with facial droop, oral secretions, swallowing or speaking. He noted that he briefly experienced blurred vision. All of his symptoms resolved within 1-1/2 hours of presenting to the emergency department. Evaluation in the emergency department revealed a normal head CT, benign chest x -ray, EKG with chronic changes (RBB, inverted T waves in V1-3), and an unremarkable laboratory workup. He was referred to the hospitalist service for observational admission for TIA/ CVA rule out. Past Medical History Cardiac Medical History: Reports: Hypertension Denies: Congestive Heart Failure, Coronary Artery Disease Pulmonary Medical History: Reports: Asthma EENT Medical History: Reports: None Neurological Medical History: Reports: None Endocrine Medical History: Reports: Diabetes Mellitus Type 2 - Prediabetic Renal/ Medical History: Reports: None Malignancy Medical History: Reports: None GI Medical History: Reports: Gastroesophageal Reflux Disease Musculoskeltal Medical History: Reports: None Skin Medical History: Reports: None Psychiatric Medical History: Reports: None Traumatic Medical History: Reports: None Hematology: Reports: None Infectious Medical History: Reports: None Past Surgical History Past Surgical History: Reports: None Social History Information Source: Patient Lives with: Alone Smoking Status: Never Smoker Frequency of Alcohol Use: Rare Hx Recreational Drug Use: No Hx Prescription Drug Abuse: No - Advance Directive Resuscitation Status: Full Code Surrogate healthcare decision maker:: The patient's mother, Nisha Enriquez, Family History Family History: DM, Hyperlipidemia, Hypertension, Malignancy Parental Family History Reviewed: Yes Children Family History Reviewed: No Sibling(s) Family History Reviewed.: No Medication/Allergy Home Medications: Famotidine/Ca Carb/Mag Hydrox [Pepcid Complete Tablet Chew] 1 each PO DAILY 11/29 Allergies/Adverse Reactions: egg [Egg] Allergy (Verified 04/30/17 16:15) Fruit Extracts [From Fruit & Vegetable Daily] Allergy (Verified 04/30/17 16:15) Lutein Extract [From Fruit & Vegetable Daily] Allergy (Verified 04/30/17 16:15) lycopene [From Fruit & Vegetable Daily] Allergy (Verified 04/30/17 16:15) peanut Allergy (Verified 08/21/17 10:30) Review of Systems Constitutional: ABSENT: chills, fever(s), headache(s), weight gain, weight loss Eyes: ABSENT: visual disturbances Ears: ABSENT: hearing changes Cardiovascular: PRESENT: chest pain - 3 days ago; resolved. ABSENT: dyspnea on exertion, edema, orthropnea, palpitations Respiratory: ABSENT: cough, hemoptysis Gastrointestinal: PRESENT: abdominal pain - RUQ. ABSENT: constipation, diarrhea , hematemesis, hematochezia, nausea, vomiting Genitourinary: ABSENT: dysuria, hematuria Musculoskeletal: ABSENT: joint swelling Integumentary: ABSENT: rash, wounds Neurological: PRESENT: as per HPI. ABSENT: abnormal gait, abnormal speech, confusion, dizziness, syncope Psychiatric: ABSENT: anxiety, depression, homidical ideation, suicidal ideation Endocrine: ABSENT: cold intolerance, heat intolerance, polydipsia, polyuria Hematologic/Lymphatic: ABSENT: easy bleeding, easy bruising Physical Exam Vital Signs: Temp Pulse Resp BP Pulse Ox 74 13 134/87 H 96 08/21/17 09:00 08/21/17 10:01 08/21/17 10:01 08/21/17 10:01 General appearance: PRESENT: no acute distress, well-developed, well-nourished, other - Overweight Head exam: PRESENT: atraumatic, normocephalic Eye exam: PRESENT: conjunctiva pink, EOMI, PERRLA. ABSENT: scleral icterus Ear exam: PRESENT: normal external ear exam Mouth exam: PRESENT: moist, tongue midline Neck exam: ABSENT: carotid bruit, JVD, lymphadenopathy, thyromegaly Respiratory exam: PRESENT: clear to auscultation joshua, symmetrical, unlabored. ABSENT: rales, rhonchi, wheezes Cardiovascular exam: PRESENT: RRR, +S1, +S2. ABSENT: diastolic murmur, rubs, systolic murmur Pulses: PRESENT: normal dorsalis pedis pul Vascular exam: PRESENT: normal capillary refill GI/Abdominal exam: PRESENT: normal bowel sounds, soft. ABSENT: distended, guarding, mass, organolmegaly, rebound, tenderness Rectal exam: PRESENT: deferred Extremities exam: PRESENT: full ROM. ABSENT: calf tenderness, clubbing, pedal edema Neurological exam: PRESENT: alert, awake, oriented to person, oriented to place , oriented to time, oriented to situation, CN II-XII grossly intact. ABSENT: motor sensory deficit Psychiatric exam: PRESENT: appropriate affect, normal mood. ABSENT: homicidal ideation, suicidal ideation Skin exam: PRESENT: dry, intact, warm. ABSENT: cyanosis, rash Results Impressions: Chest X-Ray 08/21/17 06:30 IMPRESSION: 1. No acute pulmonary process identified. Head CT 08/21/17 06:30 IMPRESSION: 1. No acute intracranial abnormality identified. This exam was performed according to our departmental dose-optimization program, which includes automated exposure control, adjustment of the mA and/or kV according to patient size and/or use of iterative reconstruction technique. Assessment & Plan - Diagnosis (1) TIA (transient ischemic attack) Is this a current diagnosis for this admission?: Yes Plan: The patient presents to the emergency department with a complaint of left-sided paresthesias that were present upon waking this morning and gradually worsened on his way to work followed by sensation of drooling to the left side of his mouth and blurred vision. All symptoms resolved within an hour of arrival to the emergency department. EKG demonstrated RBB and inverted T waves V1-3 (unchanged from previously) Head CT was negative for acute CVA. Laboratory evaluation was benign. The patient will be admitted to the IMCU unit on continuous cardiac telemetry. Mends every 4 hours Daily aspirin and statin therapy. Will obtain head MRI and carotid Dopplers. We will assess lipid panel, TSH, A1c with a.m. labs. (2) GERD (gastroesophageal reflux disease) Qualifiers: Esophagitis presence: esophagitis presence not specified Qualified Code(s) : K21.9 - Gastro-esophageal reflux disease without esophagitis Is this a current diagnosis for this admission?: Yes Plan: PPI. Maalox as needed. (3) Asthma Qualifiers: Asthma severity: mild Asthma persistence: intermittent Asthma complication type: uncomplicated Qualified Code(s): J45.20 - Mild intermittent asthma, uncomplicated Is this a current diagnosis for this admission?: Yes Plan: Without exacerbation; patient does not require maintenance medications and only uses his Ventolin inhaler intermittently. Albuterol inhaler every 4 hours as needed. (4) Constipation Is this a current diagnosis for this admission?: Yes Plan: The patient reports bowel movements every 2-3 days with mild sensation of constipation and generalized abdominal discomfort. Last bowel movement [address] on daily MiraLAX with Colace as needed. Dulcolax suppository daily as needed. - Time Time Spent: 50 to 70 Minutes Anticipated discharge: Home Within: within 24 hours
[2017-08-22 04:56] LABS: HEMATOCRIT 46.4 % (37.9-51.0); HEMOGLOBIN 15.9 g/dL (13.5-17.0); MEAN CORPUSCULAR HEMOGLOBIN 30.1 pg (27.0-33.4); MEAN CORPUSCULAR HGB CONC 34.3 g/dL (32.0-36.0); MEAN CORPUSCULAR VOLUME 88 fl (80-97); PLATELET COUNT 235 10^3/uL (150-450); RED BLOOD COUNT 5.29 10^6/uL (4.35-5.55); WHITE BLOOD COUNT 7.9 10^3/uL (4.0-10.5)
[2017-08-22 05:16] LABS: ANION GAP 10 (5-19); BLOOD UREA NITROGEN 15 mg/dL (7-20); CALCIUM 9.3 mg/dL (8.4-10.2); CARBON DIOXIDE 32 mmol/L (22-30); CHLORIDE 99 mmol/L (98-107); CHOLESTEROL 227.65 mg/dL (0-200); GLUCOSE 211 mg/dL (75-110); POTASSIUM 4.6 mmol/L (3.6-5.0); SODIUM 141.3 mmol/L (137-145); TRIGLYCERIDES 299 mg/dL (<150)
[2017-08-22 05:26] LABS: DIRECT LDL 131 mg/dL (<100)
[2017-08-22 05:28] LABS: VLDL CHOLESTEROL 59.8 mg/dL (10-31)
[2017-08-22] MEDS: LANSOPRAZOLE 15 MG TAB.RAP.DR PO SCH ×2 (05:43→16:55)
[2017-08-22] MEDS: HEPARIN SOD (PORCINE) 5,000 UNIT/ML 1 ML SYRINGE SUBCUT SCH ×3 (05:46→21:38)
[2017-08-22] MEDS ORDERED: GLUCAGON,HUMAN RECOMB 1 MG INJ IM PRN (07:59)
[2017-08-22] MEDS ORDERED: DEXTROSE 40% GEL 15 GM TUBE PO PRN ×2 (07:59)
[2017-08-22] MEDS ORDERED: DEXTROSE 50%-WATER 25 GM/50 ML DISP.SYRIN IV PRN ×2 (07:59)
[2017-08-22] MEDS ORDERED: MAG HYDROX/AL HYDROX/SIMETH SUSP 30 ML UDCUP PO PRN (09:25)
[2017-08-22] MEDS: METFORMIN HCL 500 MG TABLET PO SCH ×2 (09:38→16:55)
[2017-08-22] MEDS: ASPIRIN 81 MG TABLET, ENT COATED PO SCH (09:38)
[2017-08-22] MEDS: POLYETHYLENE GLYCOL 3350 POWDER 17 GM/1 PACKET PO SCH (09:39)
--- NOTE | 2017-08-22 16:01 | RADIOLOGY REPORT (SQ) ---
EXAM DESCRIPTION: CAROTID DOPPLER COMPLETED DATE/TIME: 08/22/2017 3:51 pm REASON FOR STUDY: TIA/CVA; left-sided paresthesias, blurred vision COMPARISON: None. TECHNIQUE: Grayscale ultrasound, Doppler velocity and spectra, and color Doppler images acquired of the extra-cranial carotid and vertebral arteries. Images stored on PACS. LIMITATIONS: None. FINDINGS: RIGHT CAROTID CCA Velocities: Within normal limits. ICA Velocities Peak systolic 0.54 m/s. End diastolic 0.17 m/s. Proximal ICA/CCA peak systolic ratio 0.7. Spectra normal. No significant plaque. LEFT CAROTID CCA Velocities: Within normal limits. ICA Velocities Peak systolic 0.51 m/s. End diastolic 0.16 m/s. Proximal ICA/CCA peak systolic ratio 1.1. Spectra normal. No significant plaque. VERTEBRAL ARTERIES: Antegrade flow. Normal waveforms. SUBCLAVIAN ARTERIES: No finding. OTHER: No other significant finding. IMPRESSION: NO HEMODYNAMICALLY SIGNIFICANT STENOSIS. COMMENT: Quality ID #[id number]: Velocity criteria are extrapolated from the diameter data as defined by t he Society of Radiologists in Ultrasound Consensus Conference. Radiology 2003: 229; 340-346. TECHNICAL DOCUMENTATION: JOB ID: [id number] [employer]- All Rights Reserved Reading location - IP/workstation name: [email or web address]
[2017-08-22] MEDS: INSULIN LISPRO 100 UNIT/ML 3 ML VIAL SUBCUT PRN (16:55)
--- NOTE | 2017-08-22 18:18 | XCELERA REPORT ---
[address] [address] Transthoracic Echocardiogram Report Name: EAMON MARQUEZ Age: 52 yrs Gender: Male : 1965 Patient Status: Inpatient Patient Location: [address] [place] [address] Study Date: 08/22/2017 02:19 PM Procedure: A two-dimensional transthoracic echocardiogram with color flow Doppler was performed. The study was technically difficult with many images being suboptimal in quality. Reason For Study: TIA/CVA; left-sided paresthesias, blurred vision History: TIA/CVA; left-sided paresthesias, blurred vision. Ordering Physician: SELAM ROCHEC Performed By: Marguerite Chao Interpretation Summary There is no obvious cardiac source of embolus noted on this transthoracic echocardiogram. Follow-up with a ROGERIO is suggested if cardiac source is still suspected. The left ventricle is normal in size. There is mild concentric left ventricular hypertrophy. LV EF is 65% Left ventricular systolic function is normal. Doppler measurements suggest normal left ventricular diastolic function The left ventricular wall motion is normal. There is no thrombus. There is no ventricular septal defect visualized. The right ventricle is grossly normal size. The right ventricle is not well visualized secondary to technical limitations The right atrium is normal. The left atrial size is normal. The interatrial septum is intact with no evidence for an atrial septal defect. There is no evidence of mitral valve prolapse. There is no vegetation seen on the mitral valve. There is no mitral valve stenosis. There is no mitral regurgitation noted. There is no aortic valve stenosis There is no LVOT obstruction. No aortic regurgitation is present. There is no tricuspid stenosis. Unable to calculate RVSP due to insufficient TR jet. There is a trace amount of pulmonic regurgitation There is no pulmonic valvular stenosis. The aortic root is not well visualized but is probably normal size. There is no pericardial effusion. There is no obvious cardiac source of embolus noted on this transthoracic echocardiogram. Follow-up with a ROGERIO is suggested if cardiac source is still suspected MMode/2D Measurements & Calculations RVDd: 3.7 cm LVIDd: 4.0 cm FS: 36.7 % Ao root diam: 3.3 cm IVSd: 1.2 cm LVIDs: 2.5 cm EDV(Teich): 68.0 ml Ao root area: 8.7 cm2 LVPWd: 1.2 cm ESV(Teich): 22.4 ml EF(Teich): 67.1 % Doppler Measurements & Calculations MV E max lilia: MV dec slope: Ao V2 max: LV V1 max P.8 cm/sec 430.9 cm/sec2 96.2 cm/sec 3.9 mmHg MV A max lilia: MV dec time: 0.18 secAo max PG: LV V1 max: 65.3 cm/sec 3.7 mmHg 98.5 cm/sec MV E/A: 1.2 PA V2 max: PI end-d lilia: 69.3 cm/sec 93.9 cm/sec PA max P.9 mmHg Left Ventricle The left ventricle is normal in size. There is mild concentric left ventricular hypertrophy. LV EF is 65%. Left ventricular systolic function is normal. Doppler measurements suggest normal left ventricular diastolic function. The left ventricular wall motion is normal. There is no thrombus. There is no ventricular septal defect visualized. Right Ventricle The right ventricle is grossly normal size. The right ventricle is not well visualized secondary to technical limitations. Atria The right atrium is normal. The left atrial size is normal. The interatrial septum is intact with no evidence for an atrial septal defect. Mitral Valve There is no evidence of mitral valve prolapse. There is no vegetation seen on the mitral valve. There is no mitral valve stenosis. There is no mitral regurgitation noted. Aortic Valve There is no aortic valvular vegetation. There is no aortic valve stenosis. There is no LVOT obstruction. No aortic regurgitation is present. Tricuspid Valve There is no tricuspid stenosis. No tricuspid regurgitation. Unable to calculate RVSP due to insufficient TR jet. Pulmonic Valve There is no pulmonic valvular stenosis. There is a trace amount of pulmonic regurgitation. Great Vessels The aortic root is not well visualized but is probably normal size. Effusions There is no pericardial effusion. : SHERWIN ROCHE > iVji Lny
[2017-08-22] MEDS ORDERED: ATORVASTATIN CALCIUM 80 MG TABLET PO SCH (22:00)
[2017-08-23 05:28] LABS: ANION GAP 12 (5-19); BLOOD UREA NITROGEN 16 mg/dL (7-20); CALCIUM 9.2 mg/dL (8.4-10.2); CARBON DIOXIDE 30 mmol/L (22-30); CHLORIDE 98 mmol/L (98-107); GLUCOSE 179 mg/dL (75-110); POTASSIUM 4.3 mmol/L (3.6-5.0); SODIUM 140.2 mmol/L (137-145)
[2017-08-23] MEDS: LANSOPRAZOLE 15 MG TAB.RAP.DR PO SCH (05:49)
[2017-08-23] MEDS: HEPARIN SOD (PORCINE) 5,000 UNIT/ML 1 ML SYRINGE SUBCUT SCH (05:49)
[2017-08-23] MEDS: INSULIN LISPRO 100 UNIT/ML 3 ML VIAL SUBCUT PRN (07:59)
[2017-08-23] MEDS: METFORMIN HCL 500 MG TABLET PO SCH (07:59)
[2017-08-23 08:54] VITALS: BP 148/76
[2017-08-23] MEDS: ASPIRIN 81 MG TABLET, ENT COATED PO SCH (08:58)
[2017-08-23] MEDS: POLYETHYLENE GLYCOL 3350 POWDER 17 GM/1 PACKET PO SCH (08:59)
--- NOTE | 2017-08-26 13:05 | PDOC DISCHARGE SUMMARY ---
General - Admit/Disc Date/PCP Admission Date/Primary Care Provider: 08/21/17 09:14 Discharge Date: 08/22/17 - Discharge Diagnosis (1) TIA (transient ischemic attack) Is this a current diagnosis for this admission?: Yes Summary: The patient was admitted with a complaint of left-sided paresthesias that were present upon waking and gradually worsened on his way to work followed by sensation of drooling to the left side of his mouth and blurred vision. All symptoms resolved within an hour of arrival to the emergency department. EKG demonstrated RBB and inverted T waves V1-3 (unchanged from previously); patient remained in NSR throughout admission. Head CT was negative for acute CVA. Head MRI revealed a normal MRI of brain without evidence of CVA. Carotid doppler was negative for hemodynamic stenosis. Echocardiogram did not identify an obvious cardiac source of embolism; LVEF 65% and otherwise benign. Lipid panel revealed elevated LDL and Triglycerides. TSH normal. A1c 7.9% The patient was placed on daily aspirin and statin therapy and provided a prescription for both at discharge. He was evaluated and cleared by speech therapy; there was no indication for PT/ OT evaluations. At time of discharged, the patient was in stable condition. He had no further episodes of transient focal defficiets. He was educated on the importance of daily aspirin and statin therapy. He was instructed to follow up with his primary care provider within 1 week and to return to the emergency department immediately for any concerning symptoms. (2) Diabetes type 2, uncontrolled Is this a current diagnosis for this admission?: Yes Summary: Patient endorsed a history of pre-diabetes; was previously on metformin. A1C found to be elevated to 7.9%. The patient was placed on Metformin 500 mg BID and provided a prescription for the same at discharge. He met with both the Application Support Engineer and Inspector Salvage. HE was educated on the importance of a low carb diet and increased physical activity. He was instructed to follow up with his primary care provider within 1 week. (3) GERD (gastroesophageal reflux disease) Is this a current diagnosis for this admission?: Yes Summary: Patient was placed on Prevacid while inpatient with Maalox prn. To resume Pepcid as outpatient. (4) Asthma Is this a current diagnosis for this admission?: Yes Summary: Controlled; without exacerbation. (5) Constipation Is this a current diagnosis for this admission?: Yes Summary: Stable; controlled with otc medications. Encouraged increased water and fiber intake. - Additional Information Resuscitation Status: Full Code Discharge Diet: Cardiac, Diabetic Discharge Activity: Activity As Tolerated, Walk Frequently Prescriptions: Albuterol Sulfate [Proair HFA Inhalation Aerosol 8.5 gm MDI] 2 puff IH Q4HP PRN #1 [email or web address] PRN Reason: Aspirin [Ecotrin 81 mg EC Tablet] 81 mg PO DAILY #90 tabec Atorvastatin Calcium [Lipitor 20 mg Tablet] 20 mg PO QHS #30 tablet Metformin HCl [Glucophage 500 mg Tablet] 500 mg PO BIDACBS #60 tablet Home Medications: Famotidine/Ca Carb/Mag Hydrox [Pepcid Complete Tablet Chew] 1 each PO DAILY 11/29 Acetaminophen [Tylenol 325 mg Tablet] 650 mg PO Q4HP PRN tablet 08/22/17 Albuterol Sulfate [Proair HFA Inhalation Aerosol 8.5 gm MDI] 2 puff IH Q4HP PRN #1 [email or web address] 08/22/17 Aspirin [Ecotrin 81 mg EC Tablet] 81 mg PO DAILY #90 tabec 08/22/17 Atorvastatin Calcium [Lipitor 20 mg Tablet] 20 mg PO QHS #30 tablet 08/22/17 Metformin HCl [Glucophage 500 mg Tablet] 500 mg PO BIDACBS #60 tablet 08/22/17 History of Present Illness History of Present Illness: EAMON MARQUEZ is a 52 year old male with a past medical history significant for asthma, GERD, prediabetic, hypertension not on hypertensive who presented to the emergency department today with a complaint of waking with left-sided numbness first noted to his hand that progressively worsened to include his left leg this morning. He also reports a sensation of drooling to the left side of his mouth, although, was not having difficulty with facial droop, oral secretions, swallowing or speaking. He noted that he briefly experienced blurred vision. All of his symptoms resolved within 1-1/2 hours of presenting to the emergency department. Evaluation in the emergency department revealed a normal head CT, benign chest x -ray, EKG with chronic changes (RBB, inverted T waves in V1-3), and an unremarkable laboratory workup. He was referred to the hospitalist service for observational admission for TIA/ CVA rule out. Physical Exam Vital Signs: Temp Pulse Resp BP Pulse Ox 97.5 F 86 13 148/76 H 98 08/23/17 08:53 08/23/17 08:53 08/23/17 08:53 08/23/17 08:53 08/23/17 08:53 General appearance: PRESENT: no acute distress, well-developed, well-nourished, other - Overweight Head exam: PRESENT: atraumatic, normocephalic Eye exam: PRESENT: conjunctiva pink, EOMI, PERRLA. ABSENT: scleral icterus Ear exam: PRESENT: normal external ear exam Mouth exam: PRESENT: moist, tongue midline Neck exam: ABSENT: carotid bruit, JVD, lymphadenopathy, thyromegaly Respiratory exam: PRESENT: clear to auscultation joshua. ABSENT: rales, rhonchi, wheezes Cardiovascular exam: PRESENT: RRR. ABSENT: diastolic murmur, rubs, systolic murmur Pulses: PRESENT: normal dorsalis pedis pul Vascular exam: PRESENT: normal capillary refill GI/Abdominal exam: PRESENT: normal bowel sounds, soft. ABSENT: distended, guarding, mass, organolmegaly, rebound, tenderness Rectal exam: PRESENT: deferred Extremities exam: PRESENT: full ROM. ABSENT: calf tenderness, clubbing, pedal edema Neurological exam: PRESENT: alert, awake, oriented to person, oriented to place , oriented to time, oriented to situation, CN II-XII grossly intact. ABSENT: motor sensory deficit Psychiatric exam: PRESENT: anxious, appropriate affect, normal mood. ABSENT: homicidal ideation, suicidal ideation Skin exam: PRESENT: dry, intact, warm. ABSENT: cyanosis, rash Results Laboratory Results: 08/22/17 04:09 08/23/17 04:36 Impressions: Head MRI 08/21/17 00:00 IMPRESSION: NORMAL MRI OF THE BRAIN WITHOUT INTRAVENOUS GADOLINIUM CONTRAST. EVIDENCE OF ACUTE STROKE: NO. Chest X-Ray 08/21/17 06:30 IMPRESSION: 1. No acute pulmonary process identified. Head CT 08/21/17 06:30 IMPRESSION: 1. No acute intracranial abnormality identified. This exam was performed according to our departmental dose-optimization program, which includes automated exposure control, adjustment of the mA and/or kV according to patient size and/or use of iterative reconstruction technique. Carotid Doppler Study 08/22/17 00:00 IMPRESSION: NO HEMODYNAMICALLY SIGNIFICANT STENOSIS. Qualifiers - * PATIENT BEING DISCHARGED WITH ANY OF THE FOLLOWING DIAGNOSIS: No Plan Discharge Plan: Discharge to home with self-care. Follow up with [facility] care provider within 1 week. Time Spent: Less than 30 Minutes
== END 2017-08-23 12:41 | disposition home or self-care (01) ==
LOC: ER 06:27 → EH 09:14 → 3W 12:37
PROVIDERS: ADMIT Internal Medicine; ATTEND Internal Medicine
DX: G45.9 Transient cerebral ischemic attack, unspecified (principal); E11.65 Type 2 diabetes mellitus with hyperglycemia; K21.9 Gastro-esophageal reflux disease without esophagitis; J45.20 Mild intermittent asthma, uncomplicated; K59.00 Constipation, unspecified; R10.11 Right upper quadrant pain; Z79.82 Long term (current) use of aspirin; Z82.49 Family history of ischemic heart disease and other diseases of the circulatory system
CPT/HCPCS: 93005; 99285; 36415 ×3; 82553; 82962 ×3; 82550; 84443; 85025; 85027; 85610; 85730; 80048 ×2; 80053; 84484; 83036; 80061; 93306; 93880; 70551; 71045; 70450; 93010; G0378 ×4; J1644 ×3; J3490 ×4; J1815 ×2

== ENCOUNTER 2018-02-16 11:44 | Emergency (ER) | payer BC ==
--- NOTE | 2018-02-16 13:11 | ER Document Report ---
ED Medical Screen (RME) - General Chief Complaint: Groin Pain Stated Complaint: BILATERAL GROIN PAIN Time Seen by Provider: 02/16/18 12:50 TRAVEL OUTSIDE OF THE [place] IN LAST 30 DAYS: No - Related Data Allergies/Adverse Reactions: egg [Egg] Allergy (Verified 02/16/18 11:45) Fruit Extracts [From Fruit & Vegetable Daily] Allergy (Verified 02/16/18 11:45) Lutein Extract [From Fruit & Vegetable Daily] Allergy (Verified 02/16/18 11:45) lycopene [From Fruit & Vegetable Daily] Allergy (Verified 02/16/18 11:45) peanut Allergy (Verified 02/16/18 11:45) Past Medical History - Past Medical History Cardiac Medical History: Reports: Hx Hypercholesterolemia, Hx Hypertension Denies: Hx Congestive Heart Failure, Hx Coronary Artery Disease Pulmonary Medical History: Reports: Hx Asthma Endocrine Medical History: Reports: Hx Diabetes Mellitus Type 2Comment Only: Hx Diabetes Mellitus Type 1 - ? Renal/ Medical History: Denies: Hx Peritoneal Dialysis GI Medical History: Reports: Hx Gastroesophageal Reflux Disease Psychiatric Medical History: Denies: Hx Depression - Immunizations Hx Diphtheria, Pertussis, Tetanus Vaccination: Yes History of Influenza Vaccine for 11/2016 - 04/2017 Season: No Physical Exam - Vital signs Vitals: Temp Pulse Resp BP Pulse Ox 98.3 F 73 16 143/94 H 96 02/16/18 12:05 02/16/18 12:05 02/16/18 12:05 02/16/18 12:05 02/16/18 12:05 Course - Re-evaluation Re-evalutation: 02/16/18 13:10 52-year-old with abdominal pain and fullness that presents for evaluation of urinary retention abdominal pain and fullness. We will obtain kidney function tests, urinalysis, and a count. We will obtain a bladder scan as well. I have seen and evaluated this patient in rapid medical screening exam, there will require reexamination and further assessment with possible diagnostics and disposition determination by secondary provider. - Vital Signs Vital signs: Temp Pulse Resp BP Pulse Ox 98.3 F 73 16 143/94 H 96 02/16/18 12:05 02/16/18 12:05 02/16/18 12:05 02/16/18 12:05 02/16/18 12:05
[2018-02-16 13:38] LABS: ABSOLUTE BASOPHILS # (AUTO) 0.1 10^3/uL (0.0-0.2); ABSOLUTE EOSINOPHILS # (AUTO) 0.4 10^3/uL (0.0-0.6); ABSOLUTE LYMPHOCYTES (AUTO) 2.4 10^3/uL (0.5-4.7); ABSOLUTE MONOCYTES (AUTO) 0.5 10^3/uL (0.1-1.4); ABSOLUTE NEUT (AUTO) 5.5 10^3/uL (1.7-8.2); BASOPHILS % (AUTO) 1.2 % (0-2); EOSINOPHILS % (AUTO) 4.2 % (0-6); HEMATOCRIT 49.1 % (37.9-51.0); LYMPHOCYTES % (AUTO) 27.1 % (13-45); MEAN CORPUSCULAR HEMOGLOBIN 30.7 pg (27.0-33.4); MEAN CORPUSCULAR HGB CONC 34.7 g/dL (32.0-36.0); MEAN CORPUSCULAR VOLUME 89 fl (80-97); MONOCYTES % (AUTO) 5.9 % (3-13); PLATELET COUNT 290 10^3/uL (150-450); RED BLOOD COUNT 5.55 10^6/uL (4.35-5.55); RED CELL DISTRIBUTION WIDTH 13.2 % (11.5-14.0); SEGMENTED NEUTROPHILS % (AUTO) 61.6 % (42-78); TOTAL CELLS COUNTED % (AUTO) 100 %; WHITE BLOOD COUNT 8.9 10^3/uL (4.0-10.5)
[2018-02-16 13:43] LABS: APPEARANCE,URINE CLEAR; BILIRUBIN,URINE NEGATIVE (NEGATIVE); COLOR,URINE STRAW; GLUCOSE, URINE >=500 mg/dL (NEGATIVE); KETONES,URINE NEGATIVE (NEGATIVE); LEUKOCYTE ESTERASE,URINE NEGATIVE (NEGATIVE); NITRITE,URINE NEGATIVE (NEGATIVE); PROTEIN,URINE NEGATIVE (NEGATIVE); URINE SPECIFIC GRAVITY 1.003; UROBILINOGEN,URINE NEGATIVE mg/dL (<2.0)
[2018-02-16 13:51] LABS: ANION GAP 9 (5-19); BLOOD UREA NITROGEN 11 mg/dL (7-20); CALCIUM 10.1 mg/dL (8.4-10.2); CARBON DIOXIDE 31 mmol/L (22-30); CHLORIDE 99 mmol/L (98-107); GLUCOSE 202 mg/dL (75-110); POTASSIUM 4.4 mmol/L (3.6-5.0); SODIUM 139.3 mmol/L (137-145)
--- NOTE | 2018-02-16 14:46 | ER Document Report ---
ED General - General Chief Complaint: Groin Pain Stated Complaint: BILATERAL GROIN PAIN Time Seen by Provider: 02/16/18 12:50 Mode of Arrival: Ambulatory Information source: Patient, [facility] Records Notes: 52 male with hypertension, hyperlipidemia, asthma, type 2 diabetes presents with complaint of abdominal cramping that started this morning. Patient's abdominal pain is generalized, intermittent and he states that it is much improved since this morning. Patient has had associated nausea without vomiting. He states his last bowel movement was yesterday. He states that he has been doing a lot of heavy lifting at work and wonders if he pulled anything. He denies painful urination, difficulty urination but describes some suprapubic pressure. Denies penile discharge. Denies fever, chills, chest pain. TRAVEL OUTSIDE OF THE [place] IN LAST 30 DAYS: No - HPI Onset: This morning Onset/Duration: Gradual, Persistent, Better Quality of pain: Cramping, Stabbing Severity: Mild Associated symptoms: Nonproductive cough, Nausea. denies: Chest pain, Fever, Headache, Vomiting, Shortness of breath Exacerbated by: Movement Relieved by: Denies Similar symptoms previously: Yes Recently seen / treated by doctor: No - Related Data Allergies/Adverse Reactions: egg [Egg] Allergy (Verified 02/16/18 11:45) Fruit Extracts [From Fruit & Vegetable Daily] Allergy (Verified 02/16/18 11:45) Lutein Extract [From Fruit & Vegetable Daily] Allergy (Verified 02/16/18 11:45) lycopene [From Fruit & Vegetable Daily] Allergy (Verified 02/16/18 11:45) peanut Allergy (Verified 02/16/18 11:45) Past Medical History - General Information source: Patient, [facility] Records - Social History Smoking Status: Never Smoker Frequency of alcohol use: None Drug Abuse: None Lives with: Family Family History: DM, Hyperlipidemia, Hypertension, Malignancy Patient has suicidal ideation: No Patient has homicidal ideation: No - Past Medical History Cardiac Medical History: Reports: Hx Hypercholesterolemia, Hx Hypertension Denies: Hx Congestive Heart Failure, Hx Coronary Artery Disease Pulmonary Medical History: Reports: Hx Asthma Endocrine Medical History: Reports: Hx Diabetes Mellitus Type 2Comment Only: Hx Diabetes Mellitus Type 1 - ? Renal/ Medical History: Denies: Hx Peritoneal Dialysis GI Medical History: Reports: Hx Gastroesophageal Reflux Disease Psychiatric Medical History: Denies: Hx Depression - Immunizations Hx Diphtheria, Pertussis, Tetanus Vaccination: Yes Review of Systems - Review of Systems Constitutional: denies: Fever, Malaise EENT: denies: Eye discharge, Throat pain Cardiovascular: denies: Chest pain, Palpitations, Dizziness, Lightheaded Respiratory: Cough. denies: Short of breath Gastrointestinal: Abdominal pain, Nausea. denies: Diarrhea, Vomiting, Constipation, Blood streaked bowels, Rectal bleeding Genitourinary: denies: Dysuria, Frequency, Hematuria, Incontinence, Urgency Male Genitourinary: denies: Testicular pain, Penile discharge Musculoskeletal: denies: Back pain Skin: denies: Rash Hematologic/Lymphatic: No symptoms reported Neurological/Psychological: denies: Headaches Physical Exam - Vital signs Vitals: Temp Pulse Resp BP Pulse Ox 98.3 F 73 16 143/94 H 96 02/16/18 12:05 02/16/18 12:05 02/16/18 12:05 02/16/18 12:05 02/16/18 12:05 - Notes Notes: PHYSICAL EXAMINATION: GENERAL: Well-appearing, well-nourished and in no acute distress. HEAD: Atraumatic, normocephalic. EYES: Pupils equal round and reactive to light, extraocular movements intact, sclera anicteric, conjunctiva are normal. ENT: Nares patent, oropharynx clear without exudates. Moist mucous membranes. NECK: Normal range of motion, supple without lymphadenopathy LUNGS: Breath sounds clear to auscultation bilaterally and equal. No wheezes rales or rhonchi. HEART: Regular rate and rhythm without murmurs ABDOMEN: Soft, nontender, nondistended abdomen. No guarding, no rebound. No masses appreciated. Umbilical hernia appreciated when patient sits up. Not painful, does not appear incarcerated. Musculoskeletal: Normal range of motion, no pitting or edema. No cyanosis. NEUROLOGICAL: Cranial nerves grossly intact. Normal speech, normal gait. Normal sensory, motor exams PSYCH: Normal mood, normal affect. SKIN: Warm, Dry, normal turgor, no rashes or lesions noted. Course - Re-evaluation Re-evalutation: 02/16/18 19:47 Laboratory 02/16/18 02/16/18 02/16/18 13:19 13:19 13:19 WBC 8.9 RBC 5.55 Hgb 17.0 Hct 49.1 MCV 89 MCH 30.7 MCHC 34.7 RDW 13.2 Plt Count 290 Seg Neutrophils % 61.6 Lymphocytes % 27.1 Monocytes % 5.9 Eosinophils % 4.2 Basophils % 1.2 Absolute Neutrophils 5.5 Absolute Lymphocytes 2.4 Absolute Monocytes 0.5 Absolute Eosinophils 0.4 Absolute Basophils 0.1 Sodium 139.3 Potassium 4.4 Chloride 99 Carbon Dioxide 31 H Anion Gap 9 BUN 11 Creatinine 0.79 Est GFR ( Amer) > 60 Est GFR (Non-Af Amer) > 60 Glucose 202 H Calcium 10.1 Lipase Urine Color STRAW Urine Appearance CLEAR Urine pH 6.0 Ur Specific [place] 1.003 Urine Protein NEGATIVE Urine Glucose (UA) >=500 H Urine Ketones NEGATIVE Urine Blood NEGATIVE Urine Nitrite NEGATIVE Urine Bilirubin NEGATIVE Urine Urobilinogen NEGATIVE Ur Leukocyte Esterase NEGATIVE Urine WBC (Auto) 0 Urine Mucus (Auto) RARE Urine Ascorbic Acid NEGATIVE 02/16/18 13:19 WBC RBC Hgb Hct MCV MCH MCHC RDW Plt Count Seg Neutrophils % Lymphocytes % Monocytes % Eosinophils % Basophils % Absolute Neutrophils Absolute Lymphocytes Absolute Monocytes Absolute Eosinophils Absolute Basophils Sodium Potassium Chloride Carbon Dioxide Anion Gap BUN Creatinine Est GFR ( Amer) Est GFR (Non-Af Amer) Glucose Calcium Lipase 31.5 Urine Color Urine Appearance Urine pH Ur Specific [place] Urine Protein Urine Glucose (UA) Urine Ketones Urine Blood Urine Nitrite Urine Bilirubin Urine Urobilinogen Ur Leukocyte Esterase Urine WBC (Auto) Urine Mucus (Auto) Urine Ascorbic Acid Abdomen/Pelvis CT 02/16/18 14:39 IMPRESSION: No definite CT findings to explain abdominal pain. Large burden of stool in the colon. Temp Pulse Resp BP Pulse Ox 98.4 F 68 16 147/91 H 96 02/16/18 16:54 02/16/18 16:54 02/16/18 16:54 02/16/18 16:54 02/16/18 16:54 53-year-old male presents with generalized abdominal pain that started 1 day ago. Describes it as a cramping pain. Vital signs reviewed and within normal limits upon arrival. Patient's abdominal exam is benign no evidence of acute abdomen. Patient has no's testicular pain, swelling. CBC is without leukocytosis or anemia. CMP shows hyperglycemia without evidence of DKA. Lipase within normal limits. CT of the abdomen and pelvis were obtained and showed no evidence of pancreatitis, cholecystitis, appendicitis, hernia, AAA, but did show a large stool burden. Patient was given mag citrate in the emergency department. Advised to use MiraLAX every other day. Patient was evaluated and treated as appropriate for the patient's presenting symptoms and complaint, with consideration of any critical or life threatening conditions that may be associated with their obtained history and exam as noted above. All results were discussed with patient. Patient provided the opportunity to ask questions, and express concerns. Patient was educated on treatments based on their presumed diagnosis as noted above. At this time we will discharge the patient with return precautions and follow-up recommendations. Verbal discharge instructions given a the bedside. Medication warnings reviewed. Patient is in agreement with this plan and has verbalized understanding of return precautions. After careful consideration I feel that that patient can be safely discharged from the emergency department, they were advised to followup with a primary care physician in 2-3 days. Dictation on this chart was performed using voice recognition software and may result in unintended grammatical, spelling, syntax or errors. - Vital Signs Vital signs: Temp Pulse Resp BP Pulse Ox 98.4 F 68 16 147/91 H 96 02/16/18 16:54 02/16/18 16:54 02/16/18 16:54 02/16/18 16:54 02/16/18 16:54 - Laboratory Result Diagrams: 02/16/18 13:19 02/16/18 13:19 Laboratory results interpreted by me: 02/16/18 02/16/18 13:19 13:19 Carbon Dioxide 31 H Glucose 202 H Urine Glucose (UA) >=500 H - Diagnostic Test Radiology reviewed: Image reviewed, Reports reviewed Discharge - Discharge Clinical Impression: Abdominal pain Qualifiers: Abdominal location: generalized Qualified Code(s): R10.84 - Generalized abdominal pain Constipation Qualifiers: Constipation type: unspecified constipation type Qualified Code(s): K59.00 - Constipation, unspecified Hyperglycemia due to type 2 diabetes mellitus Qualifiers: Diabetes mellitus oil heaterman insulin use: without [place] [facility] use Qualified Code(s): E11.65 - Type 2 diabetes mellitus with hyperglycemia Condition: Good Disposition: HOME, SELF-CARE Instructions: Abdominal Pain ([facility]), Bulk Laxatives, Constipation ([facility]) Prescriptions: Dicyclomine HCl [Bentyl 20 mg Tablet] 20 mg PO QID #15 tablet Polyethylene Glycol 3350 [Miralax Powder 17 gm/Packet] 1 packet PO DAILY #14 pkg Forms: Elevated Blood Pressure
[2018-02-16 15:08] LABS: LIPASE 31.5 U/L (23-300)
--- NOTE | 2018-02-16 15:39 | RADIOLOGY REPORT (SQ) ---
EXAM DESCRIPTION: CT ABD/PELVIS WITH IV ONLY COMPLETED DATE/TIME: 02/16/2018 3:29 pm REASON FOR STUDY: abd cramping COMPARISON: None. TECHNIQUE: CT scan of the abdomen and pelvis performed using helical scanning technique with dynamic intravenous contrast injection. No oral contrast. Images reviewed with lung, soft tissue, and bone windows. Reconstructed coronal and sagittal MPR images reviewed. Delayed images for evaluation of the urinary system also acquired. All images stored on PACS. All CT scanners at this facility use dose modulation, iterative reconstruction, and/or weight based d osing when appropriate to reduce radiation dose to as low as reasonably achievable (ALARA). [facility]: Dose Right [facility]: CareDose [facility]: Dose Right [facility]: Teradose 4D [facility]: Fronto CONTRAST TYPE AND DOSE: contrast/concentration: Isovue 350.00 mg/ml; Total Contrast Delivered: 89.0 ml; Total Saline Delivered: 70.0 ml RENAL FUNCTION: GFR > 60. RADIATION DOSE: CT Rad equipment meets quality standard of care and radiation dose reduction techniq ues were employed. CTDIvol: 8.0 - 11.2 mGy. DLP: 1073 mGy-cm.. LIMITATIONS: None. FINDINGS: LOWER CHEST: No significant findings. No nodules or infiltrates. LIVER: Normal size. No masses. No dilated ducts. SPLEEN: Normal size. No focal lesions. PANCREAS: No masses. No significant calcifications. No adjacent inflammation or peripancreatic fluid collections. Pancreatic duct not dilated. GALLBLADDER: No identified stones by CT criteria. No inflammatory changes to suggest cholecystitis. ADRENAL GLANDS: No significant masses or asymmetry. RIGHT KIDNEY AND URETER: No solid masses. No significant calcifications. No hydronephrosis or hyd roureter. LEFT KIDNEY AND URETER: No solid masses. No significant calcifications. No hydronephrosis or hydr oureter. AORTA AND VESSELS: No aneurysm. No dissection. Renal arteries, SMA, celiac without stenosis. RETROPERITONEUM: No retroperitoneal adenopathy, hemorrhage or masses. BOWEL AND PERITONEAL CAVITY: No masses or inflammatory changes. No free fluid or peritoneal masses. Large burden of stool in the colon. APPENDIX: Normal. PELVIS: No mass. No free fluid. Normal bladder. ABDOMINAL WALL: No masses. No hernias. BONES: No significant or acute findings. OTHER: No other significant finding. IMPRESSION: No definite CT findings to explain abdominal pain. Large burden of stool in the colon. TECHNICAL DOCUMENTATION: JOB ID: [id number] Quality ID # [id number]: Final reports with documentation of one or more dose reduction techniques (e.g., Au tomated exposure control, adjustment of the mA and/or kV according to patient size, use of iterative reconstruction technique) 2010 [employer]- All Rights Reserved Reading location - IP/workstation name: [email or web address]
[2018-02-16] MEDS ORDERED: MAGNESIUM CITRATE 296 ML BOTTLE PO ONE (16:40)
[2018-02-16 16:55] VITALS: BP 147/91
== END 2018-02-16 17:34 | disposition home or self-care (01) ==
LOC: ER 11:44
DX: K59.00 Constipation, unspecified (principal); R10.84 Generalized abdominal pain; E11.65 Type 2 diabetes mellitus with hyperglycemia; R10.31 Right lower quadrant pain; R10.32 Left lower quadrant pain; R05 Cough; I10 Essential (primary) hypertension; E78.5 Hyperlipidemia, unspecified; J45.909 Unspecified asthma, uncomplicated; R11.0 Nausea; X50.0XXA Overexertion from strenuous movement or load, initial encounter; Y99.0 Civilian activity done for income or pay
CPT/HCPCS: 99284; 36415; 87086; 83690; 85025; 80048; 81001; 74177; J3490

== ENCOUNTER 2018-04-07 14:19 | Emergency (ER) | payer OTHER, BC ==
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
[2018-04-07 16:00] LABS: ABSOLUTE BASOPHILS # (AUTO) 0.1 10^3/uL (0.0-0.2); ABSOLUTE EOSINOPHILS # (AUTO) 0.5 10^3/uL (0.0-0.6); ABSOLUTE MONOCYTES (AUTO) 0.6 10^3/uL (0.1-1.4); ABSOLUTE NEUT (AUTO) 6.4 10^3/uL (1.7-8.2); BASOPHILS % (AUTO) 0.8 % (0-2); EOSINOPHILS % (AUTO) 4.9 % (0-6); HEMOGLOBIN 16.6 g/dL (13.5-17.0); LYMPHOCYTES % (AUTO) 21.1 % (13-45); MEAN CORPUSCULAR HEMOGLOBIN 30.4 pg (27.0-33.4); MEAN CORPUSCULAR HGB CONC 34.6 g/dL (32.0-36.0); MEAN CORPUSCULAR VOLUME 88 fl (80-97); MONOCYTES % (AUTO) 6.1 % (3-13); PLATELET COUNT 260 10^3/uL (150-450); RED BLOOD COUNT 5.47 10^6/uL (4.35-5.55); RED CELL DISTRIBUTION WIDTH 13.2 % (11.5-14.0); SEGMENTED NEUTROPHILS % (AUTO) 67.1 % (42-78); TOTAL CELLS COUNTED % (AUTO) 100 %; WHITE BLOOD COUNT 9.6 10^3/uL (4.0-10.5)
[2018-04-07 16:13] LABS: ALANINE AMINOTRANSFERASE 29 U/L (21-72); ALBUMIN 4.7 g/dL (3.5-5.0); ALKALINE PHOSPHATASE 93 U/L (38-126); ANION GAP 11 (5-19); ASPARTATE AMINO TRANSFERASE 15 U/L (17-59); BILIRUBIN,DIRECT 0.2 mg/dL (0.0-0.4); BILIRUBIN,TOTAL 0.8 mg/dL (0.2-1.3); BLOOD UREA NITROGEN 15 mg/dL (7-20); CALCIUM 9.2 mg/dL (8.4-10.2); CARBON DIOXIDE 27 mmol/L (22-30); CHLORIDE 102 mmol/L (98-107); GLUCOSE 183 mg/dL (75-110); POTASSIUM 4.1 mmol/L (3.6-5.0); SODIUM 139.6 mmol/L (137-145); TOTAL PROTEIN 7.3 g/dL (6.3-8.2)
--- NOTE | 2018-04-07 16:17 | RADIOLOGY REPORT (SQ) ---
EXAM DESCRIPTION: CT HEAD WITHOUT COMPLETED DATE/TIME: 04/07/2018 4:03 pm REASON FOR STUDY: trauma COMPARISON: 08/21/2017 TECHNIQUE: Axial images acquired through the brain without intravenous contrast. Images reviewed wi th bone, brain and subdural windows. Images stored on PACS. All CT scanners at this facility use dose modulation, iterative reconstruction, and/or weight based d osing when appropriate to reduce radiation dose to as low as reasonably achievable (ALARA). [facility]: Dose Right [facility]: CareDose [facility]: Dose Right [facility]: Teradose 4D [facility]: Smart [employer] RADIATION DOSE: CT Rad equipment meets quality standard of care and radiation dose reduction techniq ues were employed. CTDIvol: 53.2 mGy. DLP: 1017 mGy-cm. mGy. LIMITATIONS: None. FINDINGS: VENTRICLES: Normal size and contour. CEREBRUM: No masses. No hemorrhage. No midline shift. No evidence for acute infarction. Normal gra y/white matter differentiation. No areas of low density in the white matter. CEREBELLUM: No masses. No hemorrhage. No alteration of density. No evidence for acute infarction. EXTRAAXIAL SPACES: No fluid collections. No masses. ORBITS AND GLOBE: No intra- or extraconal masses. Normal contour of globe without masses. CALVARIUM: No fracture. PARANASAL SINUSES: No fluid or mucosal thickening. SOFT TISSUES: No mass or hematoma. OTHER: No other significant finding. IMPRESSION: No acute intracranial findings. EVIDENCE OF ACUTE STROKE: NO. COMMENT: Quality ID # [id number]: Final reports with documentation of one or more dose reduction techniques (e.g., Automated exposure control, adjustment of the mA and/or kV according to patient size, use of iterative reconstruction technique) TECHNICAL DOCUMENTATION: JOB ID: [id number] [place]-72 2010 [employer]- All Rights Reserved Reading location - IP/workstation name: [email or web address]
--- NOTE | 2018-04-07 16:20 | RADIOLOGY REPORT (SQ) ---
EXAM DESCRIPTION: CT CERVICAL SPINE WITHOUT COMPLETED DATE/TIME: 04/07/2018 4:03 pm REASON FOR STUDY: trauma, pain COMPARISON: None. TECHNIQUE: Axial images acquired through the cervical spine without intravenous contrast. Images re viewed with lung, soft tissue and bone windows. Reconstructed coronal and sagittal MPR images review ed. Images stored on PACS. All CT scanners at this facility use dose modulation, iterative reconstruction, and/or weight based d osing when appropriate to reduce radiation dose to as low as reasonably achievable (ALARA). [facility]: Dose Right [facility]: CareDose [facility]: Dose Right [facility]: Teradose 4D [facility]: [employer] RADIATION DOSE: CT Rad equipment meets quality standard of care and radiation dose reduction techniq ues were employed. CTDIvol: 19.9 mGy. DLP: 404 mGy-cm. mGy. LIMITATIONS: None. FINDINGS: ALIGNMENT: Anatomic. MINERALIZATION: Normal. VERTEBRAL BODIES: No fractures or dislocation. DISCS: Multilevel disc space narrowing with osteophytes. FACETS, LATERAL MASSES, POSTERIOR ELEMENTS: Facet arthropathy. No fractures. No dislocation. No ac jamul findings. HARDWARE: None in the spine. VISUALIZED RIBS: No fractures. LUNG APICES AND SOFT TISSUES: No significant or acute findings. OTHER: No other significant finding. IMPRESSION: CHRONIC DEGENERATIVE CHANGES. NO ACUTE FINDINGS. TECHNICAL DOCUMENTATION: JOB ID: [id number] [place]-72 Quality ID # [id number]: Final reports with documentation of one or more dose reduction techniques (e.g., Au tomated exposure control, adjustment of the mA and/or kV according to patient size, use of iterative reconstruction technique) 2010 [employer]- All Rights Reserved Reading location - IP/workstation name: [email or web address]
--- NOTE | 2018-04-07 17:08 | RADIOLOGY REPORT (SQ) ---
EXAM DESCRIPTION: T SPINE AP/LAT COMPLETED DATE/TIME: 04/07/2018 4:18 pm REASON FOR STUDY: trauma COMPARISON: Concurrent cervical spine CT and earlier NUMBER OF VIEWS: Two views. TECHNIQUE: AP and lateral radiographic images acquired of the thoracic spine. LIMITATIONS: None. FINDINGS: MINERALIZATION: Normal. ALIGNMENT: Minimal levocurvature of the upper thoracic spine. No listhesis. VERTEBRAE: No fracture or bone lesion. Maintained height, normal segmentation. DISCS: No significant loss of height or significant narrowing. No large osteophytes. HARDWARE: None in the spine. MEDIASTINUM AND SOFT TISSUES: Normal heart size and aortic contour. No soft tissue abnormality. VISUALIZED LUNG CASE: Clear. OTHER: No other significant finding. IMPRESSION: NO SIGNIFICANT RADIOGRAPHIC FINDING IN THE THORACIC SPINE. TECHNICAL DOCUMENTATION: JOB ID: [id number] [employer]- All Rights Reserved Reading location - IP/workstation name: [email or web address]
[2018-04-07] MEDS ORDERED: CYCLOBENZAPRINE HCL 10 MG TABLET PO ONE (17:59)
[2018-04-07] MEDS ORDERED: IBUPROFEN 800 MG TABLET PO ONE (17:59)
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
[2018-04-07 18:39] VITALS: BP 125/96
== END 2018-04-07 18:39 | disposition home or self-care (01) ==
LOC: ER 14:19
DX: S16.1XXA Strain of muscle, fascia and tendon at neck level, initial encounter (principal); M54.2 Cervicalgia; W22.8XXA Striking against or struck by other objects, initial encounter; Y93.89 Activity, other specified; Y92.812 Truck as the place of occurrence of the external cause; Y99.0 Civilian activity done for income or pay; R25.3 Fasciculation; I10 Essential (primary) hypertension; J45.909 Unspecified asthma, uncomplicated; E11.9 Type 2 diabetes mellitus without complications
CPT/HCPCS: 36415; 70450; 72070; 72125; 80053; 83735; 85025; 99284

== ENCOUNTER 2018-10-14 11:38 | Emergency (ER) | payer OTHER, BC ==
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
--- NOTE | 2018-10-14 13:22 | RADIOLOGY REPORT (SQ) ---
EXAM DESCRIPTION: RIBS RIGHT W/PA CHEST COMPLETED DATE/TIME: 10/14/2018 1:07 pm REASON FOR STUDY: RIGHT RIB PAIN COMPARISON: None. TECHNIQUE: Frontal view of the chest and additional views of the right ribs acquired. NUMBER OF VIEWS: Five view. LIMITATIONS: None. FINDINGS: FRONTAL CXR: No pneumothorax. No pleural effusion. No atelectasis or infiltrates. RIBS: No displaced rib fractures. No lytic or blastic bony lesions. OTHER: No other significant finding. IMPRESSION: NO PNEUMOTHORAX. NO DISPLACED RIB FRACTURES. COMMENT: SITE OF TRAUMA/COMPLAINT MARKED/STAMP COMPLETED: NO. TECHNICAL DOCUMENTATION: JOB ID: [id number] [employer]- All Rights Reserved Reading location - IP/workstation name: [email or web address]
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
[2018-10-14 14:17] VITALS: BP 128/88
== END 2018-10-14 14:08 | disposition home or self-care (01) ==
LOC: ER 11:38
DX: S29.9XXA Unspecified injury of thorax, initial encounter (principal); R07.81 Pleurodynia; R10.9 Unspecified abdominal pain; H91.91 Unspecified hearing loss, right ear; W22.8XXA Striking against or struck by other objects, initial encounter; Y99.0 Civilian activity done for income or pay; I10 Essential (primary) hypertension; J45.909 Unspecified asthma, uncomplicated; E11.9 Type 2 diabetes mellitus without complications
CPT/HCPCS: 99284

== ENCOUNTER 2019-11-17 13:57 | Emergency (ER) | payer BC, OTHER ==
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
[2019-11-17 16:24] LABS: ABSOLUTE BASOPHILS # (AUTO) 0.1 10^3/uL (0.0-0.2); ABSOLUTE EOSINOPHILS # (AUTO) 0.3 10^3/uL (0.0-0.6); ABSOLUTE LYMPHOCYTES (AUTO) 1.8 10^3/uL (0.5-4.7); ABSOLUTE MONOCYTES (AUTO) 0.6 10^3/uL (0.1-1.4); ABSOLUTE NEUT (AUTO) 6.1 10^3/uL (1.7-8.2); APPEARANCE,URINE CLEAR; BILIRUBIN,URINE NEGATIVE (NEGATIVE); COLOR,URINE STRAW; EOSINOPHILS % (AUTO) 3.1 % (0-6); GLUCOSE, URINE >=500 mg/dL (NEGATIVE); HEMATOCRIT 48.4 % (37.9-51.0); HEMOGLOBIN 16.9 g/dL (13.5-17.0); KETONES,URINE TRACE mg/dL (NEGATIVE); LEUKOCYTE ESTERASE,URINE NEGATIVE (NEGATIVE); LYMPHOCYTES % (AUTO) 20.2 % (13-45); MEAN CORPUSCULAR HEMOGLOBIN 30.6 pg (27.0-33.4); MEAN CORPUSCULAR VOLUME 88 fl (80-97); MONOCYTES % (AUTO) 6.7 % (3-13); NITRITE,URINE NEGATIVE (NEGATIVE); PLATELET COUNT 263 10^3/uL (150-450); PROTEIN,URINE NEGATIVE (NEGATIVE); RED BLOOD COUNT 5.53 10^6/uL (4.35-5.55); RED CELL DISTRIBUTION WIDTH 13.3 % (11.5-14.0); TOTAL CELLS COUNTED % (AUTO) 100 %; URINE SPECIFIC GRAVITY 1.015; UROBILINOGEN,URINE NEGATIVE mg/dL (<2.0); WHITE BLOOD COUNT 8.9 10^3/uL (4.0-10.5)
[2019-11-17 16:48] LABS: ALBUMIN 4.8 g/dL (3.5-5.0); ALKALINE PHOSPHATASE 107 U/L (38-126); ANION GAP 11 (5-19); ASPARTATE AMINO TRANSFERASE 21 U/L (17-59); BILIRUBIN,DIRECT 0.3 mg/dL (0.0-0.4); BILIRUBIN,TOTAL 0.7 mg/dL (0.2-1.3); BLOOD UREA NITROGEN 16 mg/dL (7-20); CALCIUM 9.5 mg/dL (8.4-10.2); CARBON DIOXIDE 30 mmol/L (22-30); CHLORIDE 96 mmol/L (98-107); GLUCOSE 260 mg/dL (75-110); POTASSIUM 4.5 mmol/L (3.6-5.0); TOTAL PROTEIN 7.8 g/dL (6.3-8.2)
[2019-11-17 16:56] LABS: URINE AMPHETAMINES SCREEN NEGATIVE; URINE BARBITURATES SCREEN NEGATIVE; URINE BENZODIAZEPINES SCREEN NEGATIVE; URINE COCAINE SCREEN NEGATIVE; URINE MARIJUANA (THC) SCREEN NEGATIVE; URINE METHADONE SCREEN NEGATIVE; URINE PHENCYCLIDINE SCREEN NEGATIVE
--- NOTE | 2019-11-17 17:36 | RADIOLOGY REPORT (SQ) ---
EXAM DESCRIPTION: CT HEAD WITHOUT IMAGES COMPLETED DATE/TIME: 11/17/2019 5:10 pm REASON FOR STUDY: twitching COMPARISON: 04/07/2018 TECHNIQUE: Axial images acquired through the brain without intravenous contrast. Images reviewed wit h bone, brain and subdural windows. Images stored on PACS. All CT scanners at this facility use dose modulation, iterative reconstruction, and/or weight based d osing when appropriate to reduce radiation dose to as low as reasonably achievable (ALARA). [facility]: Dose Right [facility]: CareDose [facility]: Dose Right [facility]: Teradose 4D [facility]: [employer] RADIATION DOSE: CT Rad equipment meets quality standard of care and radiation dose reduction techniq ues were employed. CTDIvol: 53.2 mGy. DLP: 1070 mGy-cm.. LIMITATIONS: None. FINDINGS: VENTRICLES: Normal size and contour. CEREBRUM: No masses. No hemorrhage. No midline shift. Age appropriate white matter. No evidence for a cute infarction. CEREBELLUM: No masses. No hemorrhage. No alteration of density. No evidence for acute infarction. EXTRA-AXIAL SPACES: No fluid collections. ORBITS AND GLOBE: No intra- or extraconal masses. Normal contour of globe without masses. CALVARIUM: No fracture. PARANASAL SINUSES: No fluid or mucosal thickening. SOFT TISSUES: No mass or hematoma. OTHER: No other significant finding. IMPRESSION: NO ACUTE INTRACRANIAL FINDINGS. EVIDENCE OF ACUTE STROKE: NO. TECHNICAL DOCUMENTATION: JOB ID: [id number] [place]-72 Quality ID # [id number]: Final reports with documentation of one or more dose reduction techniques (e.g., Au tomated exposure control, adjustment of the mA and/or kV according to patient size, use of iterative reconstruction technique) 2010 [employer]- All Rights Reserved Reading location - IP/workstation name: [email or web address]
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
[2019-11-17 21:03] VITALS: BP 136/91
== END 2019-11-17 21:17 | disposition home or self-care (01) ==
LOC: ER 13:57
DX: R25.3 Fasciculation (principal); M62.838 Other muscle spasm; E87.8 Other disorders of electrolyte and fluid balance, not elsewhere classified; H91.93 Unspecified hearing loss, bilateral; E78.00 Pure hypercholesterolemia, unspecified; I10 Essential (primary) hypertension
CPT/HCPCS: 36415; 70450; 80053; 80307; 81001; 85025; 99284